=== PATIENT | female | born 1930 ===

== ENCOUNTER 2017-03-18 09:49 | Inpatient (IN) | payer MEDICARE, MEDICAID ==
[2017-03-18 09:49] VITALS: BMI 27.4
[2017-03-18] MEDS ORDERED: Sodium Chloride 0.9% 500 ML IV ONE (10:30)
--- NOTE | 2017-03-18 10:37 | C.PDOC ---
Chief Complaint (Nursing): Medical Clearance Past Medical History Vital Signs: Last Vital Signs Temp 98.6 F 03/18/17 10:06 Pulse 104 H 03/18/17 10:24 Resp 16 03/18/17 10:24 BP 107/65 03/18/17 10:24 Pulse Ox 95 03/18/17 10:24 - Medical History PMH: Alzheimer's Disease, Arthritis, Dementia, Hiatal Hernia, HTN, Hypercholesterolemia, Hypothyroidism, Seizures Denies: Sexually Transmitted Disease Surgical History: Appendectomy, Cholecystectomy Family History: States: Unknown Family Hx - Social History Hx Tobacco Use: No Hx Alcohol Use: No Hx Substance Use: No - Immunization History Hx Tetanus Toxoid Vaccination: No Hx Influenza Vaccination: No Hx Pneumococcal Vaccination: No ED Course And Treatment O2 Sat by Pulse Oximetry: 95 Disposition - Disposition Forms: Amarin (Swedish)
--- NOTE | 2017-03-18 10:37 | C.PDOC ---
History Of Present Illness 87 year old female presents to ED for evaluation of generalized weakness, dizziness, and not feeling well since this morning. Denies headache, nausea, vomiting, change in vision, change in sensation, abdominal pain, chest pain, shortness of breath, cough, or fever. Chief Complaint (Nursing): Medical Clearance History Per: Patient, EMS History/Exam Limitations: no limitations Onset/Duration Of Symptoms: Hrs, Gradual Current Symptoms Are (Timing): Still Present Recent travel outside of the [place]: No Additional History Per: Patient Past Medical History Reviewed: Historical Data, Nursing Documentation, Vital Signs Vital Signs: Last Vital Signs Temp 98.6 F 03/18/17 10:06 Pulse 96 H 03/18/17 16:25 Resp 20 03/18/17 16:25 BP 108/66 03/18/17 16:25 Pulse Ox 94 L 03/18/17 16:25 - Medical History PMH: Alzheimer's Disease, Arthritis, Dementia, Hiatal Hernia, HTN, Hypercholesterolemia, Hypothyroidism, Seizures Denies: Sexually Transmitted Disease Surgical History: Appendectomy, Cholecystectomy Family History: States: Unknown Family Hx - Social History Hx Tobacco Use: No Hx Alcohol Use: No Hx Substance Use: No - Immunization History Hx Tetanus Toxoid Vaccination: No Hx Influenza Vaccination: No Hx Pneumococcal Vaccination: No Review Of Systems Except As Marked, All Systems Reviewed And Found Negative. Constitutional: Positive for: Weakness. Negative for: Fever, Chills Cardiovascular: Negative for: Chest Pain, Palpitations, Edema Respiratory: Negative for: Cough, Shortness of Breath Gastrointestinal: Negative for: Nausea, Vomiting, Abdominal Pain Musculoskeletal: Negative for: Neck Pain, Back Pain Neurological: Positive for: Dizziness. Negative for: Weakness, Numbness, Headache Physical Exam - Physical Exam Appears: Non-toxic, No Acute Distress Skin: Normal Color, Warm, Dry Head: Atraumatic, Normacephalic Eye(s): bilateral: Normal Inspection Oral Mucosa: Moist Neck: Normal ROM, Supple Chest: Symmetrical Cardiovascular: Rhythm Regular, No Murmur Respiratory: Normal Breath Sounds, No Rales, No Rhonchi, No Wheezing Gastrointestinal/Abdominal: Soft, No Tenderness Extremity: Normal ROM, No Pedal Edema, No Deformity Neurological/Psych: Oriented x3, Normal Speech ED Course And Treatment - Laboratory Results Result Diagrams: 03/18/17 10:48 03/18/17 10:48 O2 Sat by Pulse Oximetry: 95 (RA) Pulse Ox Interpretation: Normal - Radiology CXR: Interpreted by Al CXR Interpretation: Yes: No Acute Disease - CT Scan/US Head CT Other Rad Studies (CT/US): Read By Radiologist, Radiology Report Reviewed CT/US Interpretation: PROCEDURE: CT HEAD WITHOUT CONTRAST. HISTORY: dizzy, weak. COMPARISON: None available. TECHNIQUE: Axial computed tomography images were obtained through the head/brain without intravenous contrast. Radiation dose: Total exam DLP = 1055.02 mGy-cm. This CT exam was performed using one or more of the following dose reduction techniques: Automated exposure control, adjustment of the mA and/or kV according to patient size, and/ or use of iterative reconstruction technique. FINDINGS: HEMORRHAGE: No intracranial hemorrhage. BRAIN: No intracranial mass. Surgical clips or coils in right MCA region consistent with prior aneurysm repair. Unchanged from prior. No evidence of acute infarct. Moderate periventricular white matter lucency consistent with chronic microvascular ischemic change. Moderate diffuse age-appropriate cerebral atrophy. VENTRICLES: No hydrocephalus. Mild ex vacuo dilatation of the lateral ventricles. Cavum septum pellucidum, incidentally noted. CALVARIUM: Unremarkable. PARANASAL SINUSES: Chronic ethmoid and sphenoid sinusitis. Possible air-fluid level in right maxillary sinus. Please correlate for any concern regarding acute sinusitis. The right maxillary sinus is only minimally included in this examination. MASTOID AIR CELLS: Unremarkable as visualized. No inflammatory changes. OTHER FINDINGS: None. IMPRESSION: No intracranial mass, hemorrhage or evidence of acute infarct. Age-appropriate involutional changes. 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 Possible air-fluid level in right maxillary sinus. Incompletely evaluated. Rule out acute sinusitis. Chronic ethmoid and sphenoid sinusitis. Progress Note: Blood work, UA, EKG, CXR, Head CT ordered and reviewed. Patient was given IV fluids. On reassessment, patient is resting comfortably, no acute distress. No neurologic deficit. Pt remains alert and oriented x3. Labs significant for elevated BUN /Creat that significantly worse compare with her previous visit. case was d/w who accepted patient for obsrvation. Disposition - Disposition Disposition: HOSPITALIZED Disposition Time: 14:33 Condition: FAIR - Clinical Impression Clinical Impression: Weakness, Acute on chronic renal insufficiency - PA / ASSOCIATE PROFESSOR OF MANAGEMENT / Resident Statement MD/DO has reviewed & agrees with the documentation as recorded. - Scribe Statement The provider has reviewed the documentation as recorded by the Scribe Gonsalo Gross All medical record entries made by the Kiyaibe were at my direction and personally dictated by me. I have reviewed the chart and agree that the record accurately reflects my personal performance of the history, physical exam, medical decision making, and the department course for this patient. I have also personally directed, reviewed, and agree with the discharge instructions and disposition. Decision To Admit - Pt Status Changed To: Hospital Disposition Of: Observation - . Bed Request Type: Regular Admitting Physician: Jennifer Mujica Patient Diagnosis: Weakness, Acute on chronic renal insufficiency
[2017-03-18 11:01] LABS: BASO % 0.7 % (0.0-2.0); EOS # 0.1 K/uL (0.0-0.7); HEMOGLOBIN 12.8 g/dL (11.0-16.0); INR 1.1; LYMPH # 0.8 K/uL (1.0-4.3); LYMPH % 11.2 % (20.0-40.0); MEAN CELL VOLUME 90.4 fL (81.0-99.0); MEAN CORPUSCULAR HEMOGLOBIN 30.5 pg (27.0-31.0); MEAN CORPUSCULAR HGB CONC 33.7 g/dL (33.0-37.0); MEAN PLATELET VOLUME 8.9 fL (7.2-11.7); MONO # 0.7 K/uL (0.0-0.8); MONO % 9.4 % (0.0-10.0); NEUT # 5.5 K/uL (1.8-7.0); NEUT % 76.7 % (50.0-75.0); NRBC % 0.1 % (0.0-2.0); PROTHROMBIN TIME 12.1 SECONDS (9.7-12.2); RBC 4.2 Mil/uL (3.80-5.20); RED CELL DISTRIBUTION WIDTH 13.6 % (11.5-14.5)
[2017-03-18 11:03] LABS: WHITE BLOOD COUNT 7.2 K/uL (4.8-10.8)
[2017-03-18 11:08] LABS: ALB/GLOB RATIO 1.1 (1.0-2.1); ALBUMIN 4.3 g/dL (3.5-5.0); CALCIUM 9.1 mg/dl (8.6-10.4)
[2017-03-18 11:20] LABS: CK-MB 2.47 ng/mL (0.0-3.38); TROPONIN I 0.058 ng/mL (0.00-0.120)
--- NOTE | 2017-03-18 12:11 | CT ---
PROCEDURE: CT HEAD WITHOUT CONTRAST. HISTORY: dizzy, weak COMPARISON: None available. TECHNIQUE: Axial computed tomography images were obtained through the head/brain without intravenous contrast. Radiation dose: Total exam DLP = 1055.02 mGy-cm. This CT exam was performed using one or more of the following dose reduction techniques: Automated exposure control, adjustment of the mA and/or kV according to patient size, and/or use of iterative reconstruction technique. FINDINGS: HEMORRHAGE: No intracranial hemorrhage. BRAIN: No intracranial mass. Surgical clips or coils in right MCA region consistent with prior aneurysm repair. Unchanged from prior. No evidence of acute infarct. Moderate periventricular white matter lucency consistent with chronic microvascular ischemic change. Moderate diffuse age-appropriate cerebral atrophy. VENTRICLES: No hydrocephalus. Mild ex vacuo dilatation of the lateral ventricles. Cavum septum pellucidum, incidentally noted. CALVARIUM: Unremarkable. PARANASAL SINUSES: Chronic ethmoid and sphenoid sinusitis. Possible air-fluid level in right maxillary sinus. Please correlate for any concern regarding acute sinusitis. The right maxillary sinus is only minimally included in this examination. MASTOID AIR CELLS: Unremarkable as visualized. No inflammatory changes. OTHER FINDINGS: None. IMPRESSION: No intracranial mass, hemorrhage or evidence of acute infarct. Age-appropriate involutional changes. 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 Possible air-fluid level in right maxillary sinus. Incompletely evaluated. Rule out acute sinusitis. Chronic ethmoid and sphenoid sinusitis.
--- NOTE | 2017-03-18 13:24 | RAD ---
HISTORY: weak, dizzy COMPARISON: Chest x-ray performed 02/04/16 TECHNIQUE: Chest, one view. FINDINGS: Examination limited by habitus and hypoinflation. LUNGS: Mild pulmonary venous congestion. No focal consolidation. Please note that chest x-ray has limited sensitivity for the detection of pulmonary masses. PLEURA: No significant pleural effusion identified. No definite pneumothorax . CARDIOVASCULAR: Mild cardiomegaly. OSSEOUS STRUCTURES: Osseous demineralization. Degenerative changes. VISUALIZED UPPER ABDOMEN: Elevation of the right hemidiaphragm. OTHER FINDINGS: None. IMPRESSION: Mild pulmonary venous congestion. Mild cardiomegaly.
[2017-03-18 13:33] LABS: URINE AMORPHOUS SEDIMENT RARE /ul (<OCC); URINE BACTERIA RARE (<OCC); URINE BILIRUBIN NEGATIVE (NEGATIVE); URINE BLOOD 2+ (NEGATIVE); URINE CLARITY Clear (Clear); URINE COLOR Yellow (YELLOW); URINE GLUCOSE (UA) NORMAL (Normal); URINE HYALINE CAST 0-2 /lpf (0-2); URINE LEUKOCYTE ESTERASE TRACE Leu/uL (Negative); URINE NITRATE NEGATIVE (NEGATIVE); URINE PROTEIN 2+ mg/dL (NEGATIVE); URINE UROBILINOGEN NORMAL mg/dL (0.2-1.0)
[2017-03-18] MEDS ORDERED: Sodium Chloride 0.9% 1,000 ML IV STA (14:34)
--- NOTE | 2017-03-18 18:29 | CP.PCM.HP ---
History of Present Illness - History of Present Illness History of Present Illness: pt came in to er for weekness confusion hx of alzhiemer and crf Present on Admission - Present on Admission Any Indicators Present on Admission: No Review of Systems - Review of Systems Systems not reviewed;Unavailable: Acuity of Condition - Constitutional Constitutional: Fatigue, Weakness - EENT Eyes: As Per HPI Ears: As Per HPI Nose/Mouth/Throat: As Per HPI - Breasts Breasts: As Per HPI - Cardiovascular Cardiovascular: As Per HPI - Respiratory Respiratory: As Per HPI - Gastrointestinal Gastrointestinal: As Per HPI - Genitourinary Genitourinary: As Per HPI - Reproductive: Female Reproductive:Female: As Per HPI, Post Menopausal - Menstruation Menstruation: Post Menopausal - Musculoskeletal Musculoskeletal: Arthralgias - Integumentary Integumentary: As Per HPI - Neurological Neurological: Confusion - Psychiatric Psychiatric: Anxiety - Endocrine Endocrine: As Per HPI - Hematologic/Lymphatic Hematologic: As Per HPI Past Patient History - Infectious Disease Hx of Infectious Diseases: None - Past Medical History & Family History Past Medical History?: Yes - Past Social History Smoking Status: Never Smoked - CARDIAC Hx Hypercholesterolemia: Yes Hx Hypertension: Yes - PULMONARY Hx Tuberculosis: No - NEUROLOGICAL Hx Alzheimer's Disease: Yes Hx Dementia: Yes Hx Seizures: Yes - ENDOCRINE/METABOLIC Hx Hypothyroidism: Yes - HEMATOLOGICAL/ONCOLOGICAL Hx Cancer: No - MUSCULOSKELETAL/RHEUMATOLOGICAL Hx Arthritis: Yes - GASTROINTESTINAL Other/Comment: hx of twisted intestine - GENITOURINARY/GYNECOLOGICAL Hx Sexually Transmitted Disorders: No - PSYCHIATRIC Hx Substance Use: No - SURGICAL HISTORY Hx Appendectomy: Yes Hx Cholecystectomy: Yes - ANESTHESIA Hx Anesthesia: Yes Hx Anesthesia Reactions: No Meds Allergies/Adverse Reactions: Allergies Allergy/AdvReac Type Severity Reaction Status Date / Time No Known Allergies Allergy Verified 03/18/17 15:09 Physical Exam - Constitutional Appears: Non-toxic - Head Exam Head Exam: ATRAUMATIC - Eye Exam Eye Exam: Normal appearance Pupil Exam: PERRL - ENT Exam ENT Exam: Mucous Membranes Dry - Neck Exam Neck exam: Positive for: Full Rom - Respiratory Exam Respiratory Exam: Decreased Breath Sounds - Cardiovascular Exam Cardiovascular Exam: REGULAR RHYTHM - GI/Abdominal Exam GI & Abdominal Exam: Normal Bowel Sounds - Rectal Exam Rectal Exam: Deferred - Extremities Exam Extremities exam: Positive for: normal inspection - Back Exam Back exam: NORMAL INSPECTION - Neurological Exam Neurological exam: Altered - Psychiatric Exam Psychiatric exam: Agitated - Skin Skin Exam: Normal Color Results - Vital Signs Recent Vital Signs: Last Vital Signs Temp 98.6 F 03/18/17 10:06 Pulse 96 H 03/18/17 16:25 Resp 20 03/18/17 16:25 BP 108/66 03/18/17 16:25 Pulse Ox 95 03/18/17 16:58 - Labs Result Diagrams: 03/18/17 10:48 03/18/17 10:48 Labs: Laboratory Results - last 24 hr 03/18/17 03/18/17 03/18/17 10:01 10:48 10:48 WBC 7.2 D RBC 4.20 Hgb 12.8 Hct 38.0 MCV 90.4 MCH 30.5 MCHC 33.7 RDW 13.6 Plt Count 130 MPV 8.9 Neut % (Auto) 76.7 H Lymph % (Auto) 11.2 L Bacon % (Auto) 9.4 Eos % (Auto) 2.0 Baso % (Auto) 0.7 Neut # 5.5 Lymph # 0.8 L Bacon # 0.7 Eos # 0.1 Baso # 0.0 PT 12.1 INR 1.1 APTT 26 Sodium Potassium Chloride Carbon Dioxide Anion Gap BUN Creatinine Est GFR ( Amer) Est GFR (Non-Af Amer) POC Glucose (mg/dL) 189 H Random Glucose Calcium Total Bilirubin AST ALT Alkaline Phosphatase Total Creatine Kinase CK-MB (Mass) Troponin I Total Protein Albumin Globulin Albumin/Globulin Ratio Urine Color Urine Clarity Urine pH Ur Specific [place] Urine Protein Urine Glucose (UA) Urine Ketones Urine Blood Urine Nitrate Urine Bilirubin Urine Urobilinogen Ur Leukocyte Esterase Urine WBC (Auto) Urine RBC (Auto) Amorphous Sediment Urine Bacteria Hyaline Casts 03/18/17 03/18/17 10:48 13:05 WBC RBC Hgb Hct MCV MCH MCHC RDW Plt Count MPV Neut % (Auto) Lymph % (Auto) [place] % (Auto) Eos % (Auto) Baso % (Auto) Neut # Lymph # Bacon # Eos # Baso # PT INR APTT Sodium 141 Potassium 4.5 Chloride 106 Carbon Dioxide 22 Anion Gap 17 BUN 33 H Creatinine 2.3 H Est GFR ( Amer) 24 Est GFR (Non-Af Amer) 20 POC Glucose (mg/dL) Random Glucose 147 H Calcium 9.1 Total Bilirubin 1.0 AST 38 H ALT 21 Alkaline Phosphatase 57 Total Creatine Kinase 384 H CK-MB (Mass) 2.47 Troponin I 0.0580 Total Protein 8.2 Albumin 4.3 Globulin 3.9 Albumin/Globulin Ratio 1.1 Urine Color Yellow Urine Clarity Clear Urine pH 5.0 Ur Specific [place] 1.012 Urine Protein 2+ H Urine Glucose (UA) Normal Urine Ketones Negative Urine Blood 2+ H Urine Nitrate Negative Urine Bilirubin Negative Urine Urobilinogen Normal Ur Leukocyte Esterase Trace Urine WBC (Auto) 5 Urine RBC (Auto) 1 Amorphous Sediment Rare H Urine Bacteria Rare Hyaline Casts 0-2 Assessment & Plan - Assessment and Plan (Free Text) Assessment: weekness confusion renal failiur dehydration Plan: admit and as per orders - Date & Time Date: 03/18/17 Time: 18:32
[2017-03-18 21:15] VITALS: RESP 20
--- NOTE | 2017-03-19 00:11 | CP.PCM.CON ---
History of Present Illness - History of Present Illness History of Present Illness: Dizziness, and not feeling well since this morning Alzheimer's Disease, Arthritis, Dementia, Hiatal Hernia , HTN, Hypercholesterolemia, Hypothyroidism, Seizures Difficulty walking on the Right foot and Right hip Pain 87 year old female presents to ED for evaluation of generalized weakness , . Denies headache, nausea, vomiting, change in vision, change in sensation, abdominal pain, chest pain, shortness of breath, cough, or fever. Chief Complaint (Nursing): Medical Clearance History Per: Patient, EMS History/Exam Limitations: no limitations Onset/Duration Of Symptoms: Hrs, Gradual Current Symptoms Are (Timing): Still Present Recent travel outside of the [place]: No Additional History Per: Patient Past Medical History Reviewed: Historical Data, Nursing Documentation, Vital Signs Vital Signs: Last Vital Signs Temp 98.6 F 03/18/17 10:06 Pulse 96 H 03/18/17 16:25 Resp 20 03/18/17 16:25 BP 108/66 03/18/17 16:25 Pulse Ox 94 L 03/18/17 16:25 - Medical History PMH: Alzheimer's Disease, Arthritis, Dementia, Hiatal Hernia, HTN, Hypercholesterolemia, Hypothyroidism, Seizures Denies: Sexually Transmitted Disease Surgical History: Appendectomy, Cholecystectomy Family History: States: Unknown Family Hx - Social History Hx Tobacco Use: No Hx Alcohol Use: No Hx Substance Use: No - Immunization History Hx Tetanus Toxoid Vaccination: No Hx Influenza Vaccination: No Hx Pneumococcal Vaccination: No Review Of Systems Except As Marked, All Systems Reviewed And Found Negative. Constitutional: Positive for: Weakness. Negative for: Fever, Chills Cardiovascular: Negative for: Chest Pain, Palpitations, Edema Respiratory: Negative for: Cough, Shortness of Breath Gastrointestinal: Negative for: Nausea, Vomiting, Abdominal Pain Musculoskeletal: Negative for: Neck Pain, Back Pain Neurological: Positive for: Dizziness. Negative for: Weakness, Numbness, Headache Physical Exam Appears: Non-toxic, No Acute Distress Skin: Normal Color, Warm, Dry Head: Atraumatic, Normacephalic Eye(s): bilateral: Normal Inspection Oral Mucosa: Moist Neck: Normal ROM, Supple Chest: Symmetrical Cardiovascular: Rhythm Regular, No Murmur Respiratory: Normal Breath Sounds, No Rales, No Rhonchi, No Wheezing Gastrointestinal/Abdominal: Soft, No Tenderness Extremity: Normal ROM, No Pedal Edema, No Deformity Neurological/Psych: Oriented x3, Normal Speech IMPRESSION of CT Brain: No intracranial mass, hemorrhage or evidence of acute infarct. Age-appropriate involutional changes. 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 Possible air -fluid level in right maxillary sinus. Incompletely evaluated. Rule out acute sinusitis. Chronic ethmoid and sphenoid sinusitis. - Clinical Impression Clinical Impression: Weakness, Acute on chronic renal insufficiency Past Patient History - Infectious Disease Hx of Infectious Diseases: None - Past Medical History & Family History Past Medical History?: Yes - Past Social History Smoking Status: Never Smoked - CARDIAC Hx Hypercholesterolemia: Yes Hx Hypertension: Yes - PULMONARY Hx Tuberculosis: No - NEUROLOGICAL Hx Alzheimer's Disease: Yes Hx Dementia: Yes Hx Seizures: Yes - ENDOCRINE/METABOLIC Hx Hypothyroidism: Yes - HEMATOLOGICAL/ONCOLOGICAL Hx Cancer: No - MUSCULOSKELETAL/RHEUMATOLOGICAL Hx Arthritis: Yes - GASTROINTESTINAL Other/Comment: hx of twisted intestine - GENITOURINARY/GYNECOLOGICAL Hx Sexually Transmitted Disorders: No - PSYCHIATRIC Hx Substance Use: No - SURGICAL HISTORY Hx Appendectomy: Yes Hx Cholecystectomy: Yes - ANESTHESIA Hx Anesthesia: Yes Hx Anesthesia Reactions: No Meds Allergies/Adverse Reactions: Allergies Allergy/AdvReac Type Severity Reaction Status Date / Time No Known Allergies Allergy Verified 03/18/17 15:09 - Medications Medications: Current Medications Alprazolam (Xanax) 0.25 mg PO Q8H PRN PRN Reason: Anxiety Stop: 03/25/17 23:27 Aspirin (Ecotrin) 81 mg PO DAILY [facility] Enoxaparin Sodium (Lovenox) 30 mg SC DAILY [facility] Folic Acid (Folic Acid) 1 mg PO DAILY [facility] Sodium Chloride (Sodium Chloride 0.9%) 1,000 mls @ 100 mls/hr IV .Q10H STA Stop: 03/19/17 00:33 Last Admin: 03/18/17 14:49 Dose: 100 mls/hr Ibuprofen (Motrin Tab) 400 mg PO TIDPC PRN PRN Reason: Pain, moderate (4-7) Levetiracetam (Keppra) 500 mg PO DAILY [facility] Levothyroxine Sodium (Synthroid) 50 mcg PO DAILY@0630 [facility] Pneumococcal Polyvalent Vaccine (Pneumovax 23 Vaccine) 0.5 ml IM .ONCE ONE Stop: 03/19/17 10:01 Rosuvastatin Calcium (Crestor) 10 mg PO HS [facility] Vitamin B Complex/Folic Acid (Berroca) 1 tab PO DAILY [facility] Physical Exam - Neurological Exam Additional comments: Mental status: Patient is lying down in bed, talking and complaining about her knees and her right hip. She is awake alert, demented, disoriented X 3 Memory is impaired for recent events and immediate memory. She might be talking about the old events. Cranial Nerves II to XII: Normal pupils, normal eyes movements, no facial asymmetry. Central tongue, swallowing is intact. Motor: Generalized weakness 4+ to 5-/5 moves both sides equally DTR 0/4 Plantar stimulation is initiating down going toes Sensory: Intact sensation Cerebellar: Unable to assess. Stature and Gait: Needs help due to her right hip pain and both knee pain Results - Vital Signs Recent Vital Signs: Last Vital Signs Temp 98.1 F 03/18/17 23:37 Pulse 67 03/18/17 23:37 Resp 20 03/18/17 23:37 BP 135/71 03/18/17 23:37 Pulse Ox 98 03/18/17 23:37 - Labs Result Diagrams: 03/18/17 10:48 03/18/17 10:48 Labs: Laboratory Results - last 24 hr 03/18/17 03/18/17 03/18/17 10:01 10:48 10:48 WBC 7.2 D RBC 4.20 Hgb 12.8 Hct 38.0 MCV 90.4 MCH 30.5 MCHC 33.7 RDW 13.6 Plt Count 130 MPV 8.9 Neut % (Auto) 76.7 H Lymph % (Auto) 11.2 L [place] % (Auto) 9.4 Eos % (Auto) 2.0 Baso % (Auto) 0.7 Neut # 5.5 Lymph # 0.8 L [place] # 0.7 Eos # 0.1 Baso # 0.0 PT 12.1 INR 1.1 APTT 26 Sodium Potassium Chloride Carbon Dioxide Anion Gap BUN Creatinine Est GFR ( Amer) Est GFR (Non-Af Amer) POC Glucose (mg/dL) 189 H Random Glucose Calcium Total Bilirubin AST ALT Alkaline Phosphatase Total Creatine Kinase CK-MB (Mass) Troponin I Total Protein Albumin Globulin Albumin/Globulin Ratio Urine Color Urine Clarity Urine pH Ur Specific [place] Urine Protein Urine Glucose (UA) Urine Ketones Urine Blood Urine Nitrate Urine Bilirubin Urine Urobilinogen Ur Leukocyte Esterase Urine WBC (Auto) Urine RBC (Auto) Amorphous Sediment Urine Bacteria Hyaline Casts 03/18/17 03/18/17 10:48 13:05 WBC RBC Hgb Hct MCV MCH MCHC RDW Plt Count MPV Neut % (Auto) Lymph % (Auto) [place] % (Auto) Eos % (Auto) Baso % (Auto) Neut # Lymph # [place] # Eos # Baso # PT INR APTT Sodium 141 Potassium 4.5 Chloride 106 Carbon Dioxide 22 Anion Gap 17 BUN 33 H Creatinine 2.3 H Est GFR ( Amer) 24 Est GFR (Non-Af Amer) 20 POC Glucose (mg/dL) Random Glucose 147 H Calcium 9.1 Total Bilirubin 1.0 AST 38 H ALT 21 Alkaline Phosphatase 57 Total Creatine Kinase 384 H CK-MB (Mass) 2.47 Troponin I 0.0580 Total Protein 8.2 Albumin 4.3 Globulin 3.9 Albumin/Globulin Ratio 1.1 Urine Color Yellow Urine Clarity Clear Urine pH 5.0 Ur Specific [place] 1.012 Urine Protein 2+ H Urine Glucose (UA) Normal Urine Ketones Negative Urine Blood 2+ H Urine Nitrate Negative Urine Bilirubin Negative Urine Urobilinogen Normal Ur Leukocyte Esterase Trace Urine WBC (Auto) 5 Urine RBC (Auto) 1 Amorphous Sediment Rare H Urine Bacteria Rare Hyaline Casts 0-2 Assessment & Plan (1) Acute on chronic renal insufficiency Status: Acute (2) Weakness Status: Acute (3) Chest pain Status: Acute (4) Hypothyroid Status: Acute (5) Multiple contusions Assessment and Plan: Seen in the Knee, Foot. Status: Acute (6) CVA (cerebral vascular accident) Assessment and Plan: Studies for CVA. Old Right MCA repaired aneurysm is seen. Status: Acute (7) Seizure Assessment and Plan: Studies for Seizures. Status: Acute
[2017-03-19] MEDS: Levothyroxine 50 MCG TAB PO SCH (05:34)
[2017-03-19] MEDS: Enoxaparin 30 mg Syringe SC SCH (09:46)
[2017-03-19] MEDS ORDERED: Influenza Vaccine 60 mcg/0.5 mL SYR (4YR UP) IM ONE (10:00)
[2017-03-19] MEDS ORDERED: Pneumococcal 23-Valent Vaccine IM ONE (10:00)
--- NOTE | 2017-03-19 11:06 | CP.PCM.PN ---
Subjective - Date & Time of Evaluation Date of Evaluation: 03/19/17 Time of Evaluation: 11:03 - Subjective Subjective: pain r hip dificulty ambulating feels weeke Objective - Vital Signs/Intake and Output Vital Signs (last 24 hours): Temp Pulse Resp BP Pulse Ox 98.3 F 97 H 20 114/79 96 03/19/17 08:00 03/19/17 08:00 03/19/17 08:00 03/19/17 08:00 03/19/17 08:00 Intake and Output: 03/19/17 03/19/17 06:59 18:59 Intake Total 440 Balance 440 - Medications Medications: Current Medications Alprazolam (Xanax) 0.25 mg PO Q8H PRN PRN Reason: Anxiety Stop: 03/25/17 23:27 Aspirin (Ecotrin) 81 mg PO DAILY [facility] Last Admin: 03/19/17 09:47 Dose: 81 mg Enoxaparin Sodium (Lovenox) 30 mg SC DAILY [facility] Last Admin: 03/19/17 09:46 Dose: 30 mg Folic Acid (Folic Acid) 1 mg PO DAILY [facility] Last Admin: 03/19/17 09:47 Dose: 1 mg Ibuprofen (Motrin Tab) 400 mg PO TIDPC PRN PRN Reason: Pain, moderate (4-7) Levetiracetam (Keppra) 500 mg PO DAILY [facility] Last Admin: 03/19/17 09:47 Dose: 500 mg Levothyroxine Sodium (Synthroid) 50 mcg PO DAILY@0630 [facility] Last Admin: 03/19/17 05:34 Dose: 50 mcg Rosuvastatin Calcium (Crestor) 10 mg PO [facility] Vitamin B Complex/Folic Acid (Berroca) 1 tab PO DAILY [facility] Last Admin: 03/19/17 09:47 Dose: 1 tab - Labs Labs: 03/18/17 10:48 03/18/17 10:48 PT 12.1 SECONDS (9.7-12.2) 03/18/17 10:48 INR 1.1 03/18/17 10:48 APTT 26 SECONDS (21-34) 03/18/17 10:48 - Constitutional Appears: Non-toxic - Head Exam Head Exam: NORMAL INSPECTION - Eye Exam Eye Exam: Normal appearance Pupil Exam: NORMAL ACCOMODATION - ENT Exam ENT Exam: Mucous Membranes Moist - Neck Exam Neck Exam: Full ROM - Respiratory Exam Respiratory Exam: Clear to Ausculation Bilateral - Cardiovascular Exam Cardiovascular Exam: REGULAR RHYTHM - GI/Abdominal Exam GI & Abdominal Exam: Normal Bowel Sounds - Rectal Exam Rectal Exam: NORMAL INSPECTION - Exam Exam: NORMAL INSPECTION - Back Exam Back Exam: NORMAL INSPECTION - Psychiatric Exam Psychiatric exam: Normal Affect - Skin Skin Exam: Normal Color Assessment and Plan - Assessment and Plan (Free Text) Assessment: ac pain r hip dificulty ambulation old hx brain anurysm Plan: as per orders
[2017-03-19] MEDS: Sodium Chloride 0.9% 1,000 ML IV SCH ×2 (12:04→21:28)
--- NOTE | 2017-03-19 12:05 | RAD ---
PROCEDURE: HISTORY: pain COMPARISON: 04/19/[address] x-[address] CT abdomen and pelvis 07/18/2012 TECHNIQUE: AP view of the pelvis and applicable frog leg views obtained. FINDINGS: Status post right total hip arthroplasty with acetabular and femoral components anatomically aligned. Acetabular screw more appearing no suspect hardware failure appreciated. No interval fractures. Right trochanteric calcific bursitis center calcific tendinopathy changes -similar The well corticated ossifications projecting lateral to the superior acetabulum are also compatible with right gluteal injection granulomas -CT study noted Background generalized osteopenia, inferior lumbar facet hypertrophic arthrosis of left hip arthrosis noted IMPRESSION: No interval fracture or interval hardware failure
--- NOTE | 2017-03-19 15:38 | US ---
PROCEDURE: Ultrasound of the Kidneys HISTORY: TOVA COMPARISON: None available. TECHNIQUE: Grayscale imaging was performed. FINDINGS: RIGHT KIDNEY: Measures: 9.6 cm. Normal in size, contour with diffuse increased echogenicity. There are small nonobstructing stones and vascular calcifications. No solid mass lesion or hydronephrosis visualized. LEFT KIDNEY: Measures: 10.2 cm. Normal in size, contour with diffuse increased echogenicity. There are small nonobstructing stones and vascular calcifications. No solid mass lesion or hydronephrosis visualized. OTHER FINDINGS: None. IMPRESSION: Chronic renal parenchymal disease. Nonobstructing renal stones. No hydronephrosis.
--- NOTE | 2017-03-19 19:39 | CP.PCM.CON ---
History of Present Illness - History of Present Illness History of Present Illness: Initial Nephrology Consultation (covering for Dr Gurinder Gross): Assessment: Stable possible Acute Kidney Injury (N17.9) likely due to pre-renal state versus progression of underlying CKD Hypertensive Chronic Kidney Disease (I12.9) Chronic Kidney Disease (N18.3) Stage 3 with ? mg proteinuria (R80.9) likely due to HTN Anemia (D64.9), HTN (I12.9), dementia, seizure, hypothyroidism Plan No acute need for renal replacement therapy at this time. Hypertension controlled. Patient not on ACEI/ARB as BP controlled Monitor Input/Output, daily weights and renal function with basic metabolic panel will give IVF as NS. if no improvement in renal function soon then can d/c it. Check urine spot protein/creatinine and albumin/creatinine ratio, renal sonogram. Check for 25-OH vitamin D, iPTH, phosphorus level Dose meds/antibiotics for reduced GFR. Avoid fleets enema/magnesium based laxatives. Avoid nephrotoxins/NSAIDs/ iodinated contrast (unless needed emergently) Glycemic control Further work up/management as per primary team Thanks for allowing me to participate in care of your patient. Will follow patient with you. Please call if any Qs. d/w son and team Dr Anival Jesus Office: [phone] Chief Complaint; hip pain reason for consult: TOVA HPI: Pt is a 87 F with hx of Alzheimer's Dementia, Arthritis, HTN, Hypercholesterolemia, Hypothyroidism, Seizures and CKD stage 3 with baseline cr1.3-1.7 in 2016 came with c/o feneralised fatigue and weakness and hip pain. renal consult for TOVA/CKD management Denies OTC/herbal meds or NSAIDs No recent iodinated contrast exposure. No obvious episodes of low BP. son bedside states, she has good appetite with food intake but not much of fluid intake though ROS: Cardiovascular: No chest pain. Pulmonary: No shortness of breath Gastrointestinal: denies abdominal pain No nausea. No vomiting. Genitourinary: No pain while urinating. Denies blood in urine. All other negative except as in HPI. overall very limited due to her dementia. son bedside Physical Examination: General Appearance: Comfortable, in no acute respiratory distress, co-operative . Vitals reviewed and noted as below Head; Atraumatic, normocephalic ENT: no ulcers no thrush. Tongue is midline. Oropharynx: no rash or ulcers. EYES: Pupils are equal, round and reactive to light accommodation. Eye muscles and extraocular movement intact. Sclera is anicteric. Neck; supple no lymphadenopathy, no thyromegaly or bruit Lungs: Normal respiratory rate/effort. Breath sounds bilateral equal and clear Heart: Normal rate. s1s2 normal. No rub or gallop. Extremities: no edema. No varicose veins Neurological: Patient is alert, awake and demented. No focal deficit. Strength bilateral appropriate and equal Skin: Warm and dry. Normal turgor. No rash. Palpitation: Normal elasticity for age Abdomen: Abdomen is soft. Bowel sounds +. There is no abdominal tenderness, no guarding/rigidity no organomegaly Psych: normal insight and normal affect/mood MSK: no joint tenderness or swelling. Digits and nails normal, no deformity : kidney or bladder not palpable Labs/imaging reviewed. Past medical history, past surgical history, family history, social history, allergy reviewed and noted as below Family hx: no hx of CKD. Rest non-contributory UA 2+ protein small blood. echo 2016: normal LVEF Past Patient History - Infectious Disease Hx of Infectious Diseases: None - Past Medical History & Family History Past Medical History?: Yes - Past Social History Smoking Status: Never Smoked - CARDIAC Hx Hypercholesterolemia: Yes Hx Hypertension: Yes - PULMONARY Hx Tuberculosis: No - NEUROLOGICAL Hx Alzheimer's Disease: Yes Hx Dementia: Yes Hx Seizures: Yes - ENDOCRINE/METABOLIC Hx Hypothyroidism: Yes - HEMATOLOGICAL/ONCOLOGICAL Hx Cancer: No - MUSCULOSKELETAL/RHEUMATOLOGICAL Hx Arthritis: Yes - GASTROINTESTINAL Other/Comment: hx of twisted intestine - GENITOURINARY/GYNECOLOGICAL Hx Sexually Transmitted Disorders: No - PSYCHIATRIC Hx Substance Use: No - SURGICAL HISTORY Hx Appendectomy: Yes Hx Cholecystectomy: Yes - ANESTHESIA Hx Anesthesia: Yes Hx Anesthesia Reactions: No Meds Allergies/Adverse Reactions: Allergies Allergy/AdvReac Type Severity Reaction Status Date / Time No Known Allergies Allergy Verified 03/18/17 15:09 - Medications Medications: Current Medications Alprazolam (Xanax) 0.25 mg PO Q8H PRN PRN Reason: Anxiety Stop: 03/25/17 23:27 Aspirin (Ecotrin) 81 mg PO DAILY [facility] Last Admin: 03/19/17 09:47 Dose: 81 mg Enoxaparin Sodium (Lovenox) 30 mg SC DAILY [facility] Last Admin: 03/19/17 09:46 Dose: 30 mg Folic Acid (Folic Acid) 1 mg PO DAILY [facility] Last Admin: 03/19/17 09:47 Dose: 1 mg Sodium Chloride (Sodium Chloride 0.9%) 1,000 mls @ 100 mls/hr IV .Q10H [facility] Last Admin: 03/19/17 12:04 Dose: 100 mls/hr Levetiracetam (Keppra) 500 mg PO DAILY [facility] Last Admin: 03/19/17 09:47 Dose: 500 mg Levothyroxine Sodium (Synthroid) 50 mcg PO DAILY@0630 [facility] Last Admin: 03/19/17 05:34 Dose: 50 mcg Rosuvastatin Calcium (Crestor) 10 mg PO [facility] Vitamin B Complex/Folic Acid (Berroca) 1 tab PO DAILY [facility] Last Admin: 03/19/17 09:47 Dose: 1 tab Results - Vital Signs Recent Vital Signs: Last Vital Signs Temp 98.4 F 03/19/17 15:50 Pulse 106 H 03/19/17 15:50 Resp 20 03/19/17 15:50 BP 130/85 03/19/17 15:50 Pulse Ox 98 03/19/17 15:50 - Labs Result Diagrams: 03/18/17 10:48 03/18/17 10:48
--- NOTE | 2017-03-20 00:09 | CARD ---
APPROVED REPORT EKG Measurement Heart [id number] <Conclusion> Sinus tachycardia Marked ST abnormality, possible lateral subendocardial injury Abnormal ECG
--- NOTE | 2017-03-20 00:34 | CP.PCM.PN ---
Subjective - Date & Time of Evaluation Date of Evaluation: 03/20/17 Time of Evaluation: 00:29 - Subjective Subjective: Patient is confused, having right LE pain and tenderness of the right hip and both knees. She has difficulty walking due to her right hip pain and her bilateral knee pain. She is disoriented X 3 and her speech is empty of content.She feels Abdominal tenderness on palpation and tenderness on bending her knees or flexing her right hip. VS are normal. She was seen by nephrology who is recommending to continue the current treatment. Objective - Vital Signs/Intake and Output Vital Signs (last 24 hours): Temp Pulse Resp BP Pulse Ox 98.1 F 92 H 20 128/84 98 03/19/17 23:43 03/19/17 23:43 03/19/17 23:43 03/19/17 23:43 03/19/17 23:43 Intake and Output: 03/19/17 03/20/17 18:59 06:59 Intake Total 700 1050 Balance 700 1050 - Medications Medications: Current Medications Alprazolam (Xanax) 0.25 mg PO Q8H PRN PRN Reason: Anxiety Stop: 03/25/17 23:27 Aspirin (Ecotrin) 81 mg PO DAILY [facility] Last Admin: 03/19/17 09:47 Dose: 81 mg Enoxaparin Sodium (Lovenox) 30 mg SC DAILY [facility] Last Admin: 03/19/17 09:46 Dose: 30 mg Folic Acid (Folic Acid) 1 mg PO DAILY [facility] Last Admin: 03/19/17 09:47 Dose: 1 mg Sodium Chloride (Sodium Chloride 0.9%) 1,000 mls @ 100 mls/hr IV .Q10H [facility] Last Admin: 03/19/17 21:28 Dose: Not Given Levetiracetam (Keppra) 500 mg PO DAILY [facility] Last Admin: 03/19/17 09:47 Dose: 500 mg Levothyroxine Sodium (Synthroid) 50 mcg PO DAILY@0630 [facility] Last Admin: 03/19/17 05:34 Dose: 50 mcg Rosuvastatin Calcium (Crestor) 10 mg PO HS [facility] Last Admin: 03/19/17 21:28 Dose: 10 mg Vitamin B Complex/Folic Acid (Berroca) 1 tab PO DAILY [facility] Last Admin: 03/19/17 09:47 Dose: 1 tab - Labs Labs: 03/18/17 10:48 03/18/17 10:48 PT 12.1 SECONDS (9.7-12.2) 03/18/17 10:48 INR 1.1 03/18/17 10:48 APTT 26 SECONDS (21-34) 03/18/17 10:48 Assessment and Plan (1) Acute on chronic renal insufficiency Status: Acute (2) Weakness Status: Acute (3) Chest pain Status: Acute (4) Hypothyroid Status: Acute (5) Multiple contusions Status: Acute (6) CVA (cerebral vascular accident) Assessment & Plan: 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 Status: Acute (7) Seizure Status: Acute
[2017-03-20] MEDS: Levothyroxine 50 MCG TAB PO SCH (07:00)
[2017-03-20 08:12] LABS: ALBUMIN 3.7 g/dL (3.5-5.0); CALCIUM 8.3 mg/dl (8.6-10.4)
[2017-03-20 08:18] LABS: FREE T4 1.01 ng/dL (0.78-2.19)
[2017-03-20] MEDS: Sodium Chloride 0.9% 1,000 ML IV SCH ×2 (08:45)
[2017-03-20 10:26] LABS: SQUAMOUS EPITHIAL < 1 /hpf (0-5); URINE BACTERIA RARE (<OCC); URINE BILIRUBIN NEGATIVE (NEGATIVE); URINE BLOOD 1+ (NEGATIVE); URINE CLARITY Hazy (Clear); URINE COLOR Yellow (YELLOW); URINE GLUCOSE (UA) NORMAL (Normal); URINE LEUKOCYTE ESTERASE 1+ Leu/uL (Negative); URINE NITRATE NEGATIVE (NEGATIVE); URINE PROTEIN 1+ mg/dL (NEGATIVE); URINE UROBILINOGEN NORMAL mg/dL (0.2-1.0)
[2017-03-20] MEDS: Enoxaparin 30 mg Syringe SC SCH (10:44)
[2017-03-20 11:07] LABS: CREATININE, RANDOM URINE 34.2 mg/dL
--- NOTE | 2017-03-20 11:38 | VASCLAB ---
PROCEDURE: HISTORY: AMS, Dementia, Previous CVA COMPARISON: Previous exam 02/23/2013, normal. TECHNIQUE: Grayscale and duplex Doppler evaluation of the cervical carotid and vertebral arteries were performed. The common carotid, carotid bifurcations and cervical Internal Carotid Artery (ICA) and proximal External Carotid Artery (ECA) were evaluated. The vertebral arteries were evaluated for gross patency and flow direction. Report prepared by Vahe Thompson, BS, RVT FINDINGS: RIGHT CAROTID ARTERIES: 1. Common Carotid Artery: No significant focal plaque formation of the right common carotid artery. Maximum Peak Systolic velocity: 93 cm/sec: End-diastolic velocity 20 cm/sec. 2. Carotid Bifurcation: Calcific plaque formation. Maximum Peak Systolic velocity: 54 cm/sec: End-diastolic velocity 9 cm/sec. 3. Internal Carotid Artery: Plaque description: Calcific 3.1. Proximal Segment: Peak systolic velocity 51 cm/sec: End-diastolic velocity 14 cm/sec - % stenosis 0-15% 3.2. Middle Segment: Peak systolic velocity 66 cm/sec: End-diastolic velocity 21 cm/sec - % stenosis 0-15% 3.3. Distal Segment: Peak systolic velocity 84 cm/sec: End-diastolic velocity 32 cm/sec - % stenosis 0-15% 4. External Carotid Artery: No significant focal plaque formation. Peak systolic velocity 55 cm/sec 5. ICA/CCA Ratio: 1.4 LEFT CAROTID ARTERIES: 1. Common Carotid Artery: No significant focal plaque formation of the left common carotid artery. Maximum Peak Systolic velocity: 63 cm/sec: End-diastolic velocity 19 cm/sec. 2. Carotid Bifurcation: Calcific plaque formation. Maximum Peak Systolic velocity: 56 cm/sec: End-diastolic velocity 19 cm/sec. 3. Internal Carotid Artery: Plaque description: Calcific 3.1. Proximal Segment: Peak systolic velocity 85 cm/sec: End-diastolic velocity 29 cm/sec - % stenosis 0-15% 3.2. Middle Segment: Peak systolic velocity 88 cm/sec: End-diastolic velocity 25 cm/sec - % stenosis 0-15% 3.3. Distal Segment: Peak systolic velocity 66 cm/sec: End-diastolic velocity 20 cm/sec - % stenosis 0-15% 4. External Carotid Artery: No significant focal plaque formation. Peak systolic velocity 59 cm/sec 5. ICA/CCA Ratio: 1.6 VERTEBRAL ARTERIES: 1. Right Vertebral Artery: The right vertebral artery flow direction is antegrade. 2. Left Vertebral Artery: The left vertebral artery flow direction is antegrade. OTHER FINDINGS: 1. Right Brachial Blood pressure: 134 mmHg. 2. Left Brachial Blood pressure: 130 mmHg. IMPRESSION: RIGHT: Duplex scan does not suggest hemodynamically significant stenosis of the right extracranial carotid arteries. LEFT: Duplex scan does not suggest hemodynamically significant stenosis of the left extracranial carotid arteries.
[2017-03-20] MEDS ORDERED: Ciprofloxacin 200mg/100ml D5W 100 ML IVPB STA (11:41)
--- NOTE | 2017-03-20 11:45 | CP.PCM.PN ---
Subjective - Date & Time of Evaluation Date of Evaluation: 03/20/17 Time of Evaluation: 11:41 - Subjective Subjective: weeke sleepy as per pt could not walk need rehab has uti as per u/a Objective - Vital Signs/Intake and Output Vital Signs (last 24 hours): Temp Pulse Resp BP Pulse Ox 97.2 F L 98 H 20 156/95 H 97 03/20/17 08:07 03/20/17 08:07 03/20/17 08:07 03/20/17 08:07 03/20/17 08:07 Intake and Output: 03/20/17 03/20/17 06:59 18:59 Intake Total 1950 Output Total 4 Balance 1950 -4 - Medications Medications: Current Medications Alprazolam (Xanax) 0.25 mg PO Q8H PRN PRN Reason: Anxiety Stop: 03/25/17 23:27 Aspirin (Ecotrin) 81 mg PO DAILY [facility] Last Admin: 03/20/17 10:44 Dose: 81 mg Carvedilol (Coreg) 3.125 mg PO BID [facility] Enoxaparin Sodium (Lovenox) 30 mg SC DAILY [facility] Last Admin: 03/20/17 10:44 Dose: 30 mg Folic Acid (Folic Acid) 1 mg PO DAILY [facility] Last Admin: 03/20/17 10:44 Dose: 1 mg Levetiracetam (Keppra) 500 mg PO DAILY [facility] Last Admin: 03/20/17 10:44 Dose: 500 mg Levothyroxine Sodium (Synthroid) 50 mcg PO DAILY@0630 [facility] Last Admin: 03/20/17 07:00 Dose: 50 mcg Rosuvastatin Calcium (Crestor) 10 mg PO HS [facility] Last Admin: 03/19/17 21:28 Dose: 10 mg Vitamin B Complex/Folic Acid (Berroca) 1 tab PO DAILY [facility] Last Admin: 03/20/17 10:44 Dose: 1 tab - Labs Labs: 03/18/17 10:48 03/20/17 07:12 PT 12.1 SECONDS (9.7-12.2) 03/18/17 10:48 INR 1.1 03/18/17 10:48 APTT 26 SECONDS (21-34) 03/18/17 10:48 - Constitutional Appears: Non-toxic - Head Exam Head Exam: ATRAUMATIC - Eye Exam Eye Exam: Normal appearance - ENT Exam ENT Exam: Mucous Membranes Moist - Neck Exam Neck Exam: Normal Inspection - Respiratory Exam Respiratory Exam: NORMAL BREATHING PATTERN - Cardiovascular Exam Cardiovascular Exam: REGULAR RHYTHM - GI/Abdominal Exam GI & Abdominal Exam: Normal Bowel Sounds - Rectal Exam Rectal Exam: NORMAL INSPECTION - Extremities Exam Additional comments: l hip pain r knee pain - Neurological Exam Neurological Exam: Alert - Psychiatric Exam Psychiatric exam: Normal Affect - Skin Skin Exam: Normal Color Assessment and Plan - Assessment and Plan (Free Text) Assessment: arthritiship knee dificulty ambulating week ac urt infection will start antibiotics pt then arrange for geetha Plan: as per orders
--- NOTE | 2017-03-20 16:45 | CP.PCM.PN ---
Subjective - Date & Time of Evaluation Date of Evaluation: 03/20/17 Time of Evaluation: 16:43 - Subjective Subjective: Follow up Nephrology Consultation (covering for Dr Gurinder Gross): Assessment: Stable possible Acute Kidney Injury (N17.9) likely due to pre-renal state imrpoved with IVF Hypertensive Chronic Kidney Disease (I12.9) Chronic Kidney Disease (N18.3) Stage 3 with 1500 mg proteinuria (R80.9) likely due to HTN Anemia (D64.9), HTN (I12.9), dementia, seizure, hypothyroidism Plan No acute need for renal replacement therapy at this time. Hypertension controlled. Patient not on ACEI/ARB as BP controlled Monitor Input/Output, daily weights and renal function with basic metabolic panel d/c IVF as renal function now at baseline pending iPTH pt encouarged for oral fluid intake Dose meds/antibiotics for improved GFR. Avoid fleets enema/magnesium based laxatives. Avoid nephrotoxins/NSAIDs/ iodinated contrast (unless needed emergently) Glycemic control Further work up/management as per primary team pt stable for d/c from renal perspective when planned by team Thanks for allowing me to participate in care of your patient. Will follow patient with you. Please call if any Qs. d/w son and team Dr Anival Jesus Office: [phone] reason for consult: TOVA HPI: Pt is a 87 F with hx of Alzheimer's Dementia, Arthritis, HTN, Hypercholesterolemia, Hypothyroidism, Seizures and CKD stage 3 with baseline cr1.3-1.7 in 2016 came with c/o feneralised fatigue and weakness and hip pain. renal consult for TOVA/CKD management Denies OTC/herbal meds or NSAIDs No recent iodinated contrast exposure. No obvious episodes of low BP. son bedside states, she has good appetite with food intake but not much of fluid intake though ROS: Cardiovascular: No chest pain. Pulmonary: No shortness of breath Gastrointestinal: denies abdominal pain No nausea. No vomiting. Genitourinary: No pain while urinating. Denies blood in urine. All other negative except as in HPI. overall very limited due to her dementia. son bedside Physical Examination: General Appearance: Comfortable, in no acute respiratory distress, co-operative . Vitals reviewed and noted as below Head; Atraumatic, normocephalic ENT: no ulcers no thrush. Tongue is midline. Oropharynx: no rash or ulcers. EYES: Pupils are equal, round and reactive to light accommodation. Eye muscles and extraocular movement intact. Sclera is anicteric. Neck; supple no lymphadenopathy, no thyromegaly or bruit Lungs: Normal respiratory rate/effort. Breath sounds bilateral equal and clear Heart: Normal rate. s1s2 normal. No rub or gallop. Extremities: no edema. No varicose veins Neurological: Patient is alert, awake and demented. No focal deficit. Strength bilateral appropriate and equal Skin: Warm and dry. Normal turgor. No rash. Palpitation: Normal elasticity for age Abdomen: Abdomen is soft. Bowel sounds +. There is no abdominal tenderness, no guarding/rigidity no organomegaly Psych: normal insight and normal affect/mood MSK: no joint tenderness or swelling. Digits and nails normal, no deformity : kidney or bladder not palpable Labs/imaging reviewed. Past medical history, past surgical history, family history, social history, allergy reviewed and noted as below Family hx: no hx of CKD. Rest non-contributory UA 2+ protein small blood. echo 2016: normal LVEF renal sono: echogenic kidneys Objective - Vital Signs/Intake and Output Vital Signs (last 24 hours): Temp Pulse Resp BP Pulse Ox 97.8 F 90 20 99/66 L 94 L 03/20/17 15:00 03/20/17 15:00 03/20/17 15:00 03/20/17 15:00 03/20/17 15:00 Intake and Output: 03/20/17 03/20/17 06:59 18:59 Intake Total 1950 660 Output Total 4 Balance 1950 656 - Medications Medications: Current Medications Alprazolam (Xanax) 0.25 mg PO Q8H PRN PRN Reason: Anxiety Stop: 03/25/17 23:27 Aspirin (Ecotrin) 81 mg PO DAILY [facility] Last Admin: 03/20/17 10:44 Dose: 81 mg Carvedilol (Coreg) 3.125 mg PO BID [facility] Last Admin: 03/20/17 12:28 Dose: 3.125 mg Enoxaparin Sodium (Lovenox) 30 mg SC DAILY [facility] Last Admin: 03/20/17 10:44 Dose: 30 mg Folic Acid (Folic Acid) 1 mg PO DAILY [facility] Last Admin: 03/20/17 10:44 Dose: 1 mg Ceftriaxone Sodium 1 gm/ (Sodium Chloride) 100 mls @ 100 mls/hr IVPB Q24H [facility] Levetiracetam (Keppra) 500 mg PO DAILY [facility] Last Admin: 03/20/17 10:44 Dose: 500 mg Levothyroxine Sodium (Synthroid) 50 mcg PO DAILY@0630 [facility] Last Admin: 03/20/17 07:00 Dose: 50 mcg Rosuvastatin Calcium (Crestor) 10 mg PO HS [facility] Last Admin: 03/19/17 21:28 Dose: 10 mg Vitamin B Complex/Folic Acid (Berroca) 1 tab PO DAILY [facility] Last Admin: 03/20/17 10:44 Dose: 1 tab - Labs Labs: 03/18/17 10:48 03/20/17 07:12 PT 12.1 SECONDS (9.7-12.2) 03/18/17 10:48 INR 1.1 03/18/17 10:48 APTT 26 SECONDS (21-34) 03/18/17 10:48
--- NOTE | 2017-03-21 00:12 | CP.PCM.PN ---
Subjective - Date & Time of Evaluation Date of Evaluation: 03/21/17 Time of Evaluation: 00:09 - Subjective Subjective: She is improving slowly. Negative carotid Doppler bilaterally. No change in her mental status. Improvement of BUN down to normal value is 17, slightly high Creatinine 1.5 Apparently She was dehydrated and is well hydrated. Normal Vitamin D level. High ESR at 59 and CRP more than 16 Objective - Vital Signs/Intake and Output Vital Signs (last 24 hours): Temp Pulse Resp BP Pulse Ox 99 F 93 H 20 110/68 94 L 03/20/17 23:10 03/20/17 23:10 03/20/17 23:10 03/20/17 23:10 03/20/17 23:10 Intake and Output: 03/20/17 03/21/17 18:59 06:59 Intake Total 660 Output Total 4 Balance 656 - Medications Medications: Current Medications Alprazolam (Xanax) 0.25 mg PO Q8H PRN PRN Reason: Anxiety Stop: 03/25/17 23:27 Aspirin (Ecotrin) 81 mg PO DAILY [facility] Last Admin: 03/20/17 10:44 Dose: 81 mg Carvedilol (Coreg) 3.125 mg PO BID [facility] Last Admin: 03/20/17 17:22 Dose: 3.125 mg Enoxaparin Sodium (Lovenox) 30 mg SC DAILY [facility] Last Admin: 03/20/17 10:44 Dose: 30 mg Folic Acid (Folic Acid) 1 mg PO DAILY [facility] Last Admin: 03/20/17 10:44 Dose: 1 mg Ceftriaxone Sodium 1 gm/ (Sodium Chloride) 100 mls @ 100 mls/hr IVPB Q24H [facility] Last Admin: 03/20/17 16:05 Dose: 100 mls/hr Levetiracetam (Keppra) 500 mg PO DAILY [facility] Last Admin: 03/20/17 10:44 Dose: 500 mg Levothyroxine Sodium (Synthroid) 50 mcg PO DAILY@0630 [facility] Last Admin: 03/20/17 07:00 Dose: 50 mcg Rosuvastatin Calcium (Crestor) 10 mg PO HS [facility] Last Admin: 03/20/17 22:00 Dose: 10 mg Vitamin B Complex/Folic Acid (Berroca) 1 tab PO DAILY [facility] Last Admin: 03/20/17 10:44 Dose: 1 tab - Labs Labs: 03/18/17 10:48 03/20/17 07:12 PT 12.1 SECONDS (9.7-12.2) 03/18/17 10:48 INR 1.1 03/18/17 10:48 APTT 26 SECONDS (21-34) 03/18/17 10:48 Assessment and Plan (1) Acute on chronic renal insufficiency Status: Acute (2) Weakness Status: Acute (3) Chest pain Status: Acute (4) Hypothyroid Status: Acute (5) Multiple contusions Status: Acute (6) CVA (cerebral vascular accident) Status: Acute (7) Seizure Status: Acute
[2017-03-21] MEDS: Levothyroxine 50 MCG TAB PO SCH (05:57)
[2017-03-21 07:04] LABS: CALCIUM 8.3 mg/dl (8.6-10.4)
[2017-03-21] MEDS: Enoxaparin 30 mg Syringe SC SCH (10:21)
--- NOTE | 2017-03-21 15:42 | CP.PCM.PN ---
Subjective - Date & Time of Evaluation Date of Evaluation: 03/21/17 Time of Evaluation: 15:41 - Subjective Subjective: Follow up Nephrology Consultation (covering for Dr Gurinder Gross): Assessment: Stable Acute Kidney Injury (N17.9) likely due to pre-renal state improved with IVF Hypertensive Chronic Kidney Disease (I12.9) Chronic Kidney Disease (N18.3) Stage 3 with 1500 mg proteinuria (R80.9) likely due to HTN Anemia (D64.9), HTN (I12.9), dementia, seizure, hypothyroidism Plan No acute need for renal replacement therapy at this time. Hypertension controlled. Patient not on ACEI/ARB as BP controlled. will consider if BP higher Monitor Input/Output, daily weights and renal function with basic metabolic panel pt encouarged for oral fluid intake Dose meds/antibiotics for improved GFR. Avoid fleets enema/magnesium based laxatives. Avoid nephrotoxins/NSAIDs/ iodinated contrast (unless needed emergently) Glycemic control Further work up/management as per primary team pt stable for d/c from renal perspective when planned by team Thanks for allowing me to participate in care of your patient. Will follow patient with you. Please call if any Qs. d/w son and team Dr Anival Jesus Office: [phone] reason for consult: TOVA HPI: Pt is a 87 F with hx of Alzheimer's Dementia, Arthritis, HTN, Hypercholesterolemia, Hypothyroidism, Seizures and CKD stage 3 with baseline cr1.3-1.7 in 2016 came with c/o feneralised fatigue and weakness and hip pain. renal consult for TOVA/CKD management Denies OTC/herbal meds or NSAIDs No recent iodinated contrast exposure. No obvious episodes of low BP. son bedside states, she has good appetite with food intake but not much of fluid intake though ROS: Cardiovascular: No chest pain. Pulmonary: No shortness of breath Gastrointestinal: denies abdominal pain No nausea. No vomiting. Genitourinary: No pain while urinating. Denies blood in urine. All other negative except as in HPI. overall very limited due to her dementia. Physical Examination: General Appearance: Comfortable, in no acute respiratory distress, co-operative . Vitals reviewed and noted as below Head; Atraumatic, normocephalic ENT: no ulcers no thrush. Tongue is midline. Oropharynx: no rash or ulcers. EYES: Pupils are equal, round and reactive to light accommodation. Eye muscles and extraocular movement intact. Sclera is anicteric. Neck; supple no lymphadenopathy, no thyromegaly or bruit Lungs: Normal respiratory rate/effort. Breath sounds bilateral equal and clear Heart: Normal rate. s1s2 normal. No rub or gallop. Extremities: no edema. No varicose veins Neurological: Patient is alert, awake and demented. No focal deficit. Strength bilateral appropriate and equal Skin: Warm and dry. Normal turgor. No rash. Palpitation: Normal elasticity for age Abdomen: Abdomen is soft. Bowel sounds +. There is no abdominal tenderness, no guarding/rigidity no organomegaly Psych: normal insight and normal affect/mood MSK: no joint tenderness or swelling. Digits and nails normal, no deformity : kidney or bladder not palpable Labs/imaging reviewed. Past medical history, past surgical history, family history, social history, allergy reviewed and noted as below Family hx: no hx of CKD. Rest non-contributory UA 2+ protein small blood. echo 2016: normal LVEF renal sono: echogenic kidneys Objective - Vital Signs/Intake and Output Vital Signs (last 24 hours): Temp Pulse Resp BP Pulse Ox 99.6 F 97 H 20 115/69 99 03/21/17 08:52 03/21/17 08:52 03/21/17 08:52 03/21/17 08:52 03/21/17 08:52 Intake and Output: 03/21/17 03/21/17 06:59 18:59 Intake Total 200 Balance 200 - Medications Medications: Current Medications Alprazolam (Xanax) 0.25 mg PO Q8H PRN PRN Reason: Anxiety Stop: 03/25/17 23:27 Aspirin (Ecotrin) 81 mg PO DAILY [facility] Last Admin: 03/21/17 10:22 Dose: 81 mg Carvedilol (Coreg) 3.125 mg PO BID [facility] Last Admin: 03/21/17 10:22 Dose: 3.125 mg Enoxaparin Sodium (Lovenox) 30 mg SC DAILY [facility] Last Admin: 03/21/17 10:21 Dose: 30 mg Folic Acid (Folic Acid) 1 mg PO DAILY [facility] Last Admin: 03/21/17 10:22 Dose: 1 mg Ceftriaxone Sodium 1 gm/ (Sodium Chloride) 100 mls @ 100 mls/hr IVPB Q24H [facility] Last Admin: 03/20/17 16:05 Dose: 100 mls/hr Levetiracetam (Keppra) 500 mg PO DAILY [facility] Last Admin: 03/21/17 10:22 Dose: 500 mg Levothyroxine Sodium (Synthroid) 50 mcg PO DAILY@0630 [facility] Last Admin: 03/21/17 05:57 Dose: 50 mcg Rosuvastatin Calcium (Crestor) 10 mg PO HS [facility] Last Admin: 03/20/17 22:00 Dose: 10 mg Vitamin B Complex/Folic Acid (Berroca) 1 tab PO DAILY [facility] Last Admin: 03/21/17 10:22 Dose: 1 tab - Labs Labs: 03/18/17 10:48 03/21/17 06:39 PT 12.1 SECONDS (9.7-12.2) 03/18/17 10:48 INR 1.1 03/18/17 10:48 APTT 26 SECONDS (21-34) 03/18/17 10:48
--- NOTE | 2017-03-21 19:12 | CP.PCM.PN ---
Subjective - Date & Time of Evaluation Date of Evaluation: 03/21/17 Time of Evaluation: 19:10 - Subjective Subjective: pain r hip and knees dificulty ambulating Objective - Vital Signs/Intake and Output Vital Signs (last 24 hours): Temp Pulse Resp BP Pulse Ox 98.5 F 98 H 20 112/73 98 03/21/17 16:56 03/21/17 17:48 03/21/17 16:56 03/21/17 17:48 03/21/17 16:56 Intake and Output: 03/21/17 03/22/17 18:59 06:59 Intake Total 400 Balance 400 - Medications Medications: Current Medications Alprazolam (Xanax) 0.25 mg PO Q8H PRN PRN Reason: Anxiety Stop: 03/25/17 23:27 Aspirin (Ecotrin) 81 mg PO DAILY [facility] Last Admin: 03/21/17 10:22 Dose: 81 mg Calcium/Vitamin D (Oscal-D 250 Mg-125 Units Tab) 1 tab PO DAILY [facility] Carvedilol (Coreg) 3.125 mg PO BID [facility] Last Admin: 03/21/17 17:49 Dose: 3.125 mg Enoxaparin Sodium (Lovenox) 30 mg SC DAILY [facility] Last Admin: 03/21/17 10:21 Dose: 30 mg Folic Acid (Folic Acid) 1 mg PO DAILY [facility] Last Admin: 03/21/17 10:22 Dose: 1 mg Ceftriaxone Sodium 1 gm/ (Sodium Chloride) 100 mls @ 100 mls/hr IVPB Q24H [facility] Last Admin: 03/21/17 16:39 Dose: 100 mls/hr Levetiracetam (Keppra) 500 mg PO DAILY [facility] Last Admin: 03/21/17 10:22 Dose: 500 mg Levothyroxine Sodium (Synthroid) 50 mcg PO DAILY@0630 [facility] Last Admin: 03/21/17 05:57 Dose: 50 mcg Rosuvastatin Calcium (Crestor) 10 mg PO HS [facility] Last Admin: 03/20/17 22:00 Dose: 10 mg Vitamin B Complex/Folic Acid (Berroca) 1 tab PO DAILY [facility] Last Admin: 03/21/17 10:22 Dose: 1 tab - Labs Labs: 03/18/17 10:48 03/21/17 06:39 PT 12.1 SECONDS (9.7-12.2) 03/18/17 10:48 INR 1.1 03/18/17 10:48 APTT 26 SECONDS (21-34) 03/18/17 10:48 - Constitutional Appears: Non-toxic - Head Exam Head Exam: NORMAL INSPECTION - Eye Exam Eye Exam: Normal appearance Pupil Exam: NORMAL ACCOMODATION - ENT Exam ENT Exam: Normal Exam - Neck Exam Neck Exam: Full ROM - Respiratory Exam Respiratory Exam: Clear to Ausculation Bilateral - Cardiovascular Exam Cardiovascular Exam: REGULAR RHYTHM - GI/Abdominal Exam GI & Abdominal Exam: Normal Bowel Sounds - Rectal Exam Rectal Exam: NORMAL INSPECTION - Exam Exam: NORMAL INSPECTION - Back Exam Back Exam: NORMAL INSPECTION - Neurological Exam Neurological Exam: Awake - Psychiatric Exam Psychiatric exam: Normal Affect - Skin Skin Exam: Normal Color Assessment and Plan - Assessment and Plan (Free Text) Assessment: arthritis generalised weekness difficulty ambulating ri Plan: cont as per orders need geetha
--- NOTE | 2017-03-21 23:05 | CP.PCM.PN ---
Subjective - Date & Time of Evaluation Date of Evaluation: 03/21/17 Time of Evaluation: 23:02 - Subjective Subjective: She is more stable and her chronic mental changes are unchanged. There are no documented seizures. Right hip pain and bilateral Knees pain remain unchanged. She has difficulty walking. Objective - Vital Signs/Intake and Output Vital Signs (last 24 hours): Temp Pulse Resp BP Pulse Ox 98.5 F 98 H 20 112/73 98 03/21/17 16:56 03/21/17 17:48 03/21/17 16:56 03/21/17 17:48 03/21/17 16:56 Intake and Output: 03/21/17 03/22/17 18:59 06:59 Intake Total 400 Balance 400 - Medications Medications: Current Medications Alprazolam (Xanax) 0.25 mg PO Q8H PRN PRN Reason: Anxiety Stop: 03/25/17 23:27 Aspirin (Ecotrin) 81 mg PO DAILY [facility] Last Admin: 03/21/17 10:22 Dose: 81 mg Calcium/Vitamin D (Oscal-D 250 Mg-125 Units Tab) 1 tab PO DAILY [facility] Carvedilol (Coreg) 3.125 mg PO BID [facility] Last Admin: 03/21/17 17:49 Dose: 3.125 mg Enoxaparin Sodium (Lovenox) 30 mg SC DAILY [facility] Last Admin: 03/21/17 10:21 Dose: 30 mg Folic Acid (Folic Acid) 1 mg PO DAILY [facility] Last Admin: 03/21/17 10:22 Dose: 1 mg Ceftriaxone Sodium 1 gm/ (Sodium Chloride) 100 mls @ 100 mls/hr IVPB Q24H [facility] Last Admin: 03/21/17 16:39 Dose: 100 mls/hr Levetiracetam (Keppra) 500 mg PO DAILY [facility] Last Admin: 03/21/17 10:22 Dose: 500 mg Levothyroxine Sodium (Synthroid) 50 mcg PO DAILY@0630 [facility] Last Admin: 03/21/17 05:57 Dose: 50 mcg Rosuvastatin Calcium (Crestor) 10 mg PO HS [facility] Last Admin: 03/21/17 21:42 Dose: 10 mg Vitamin B Complex/Folic Acid (Berroca) 1 tab PO DAILY [facility] Last Admin: 03/21/17 10:22 Dose: 1 tab - Labs Labs: 03/18/17 10:48 03/21/17 06:39 PT 12.1 SECONDS (9.7-12.2) 03/18/17 10:48 INR 1.1 03/18/17 10:48 APTT 26 SECONDS (21-34) 03/18/17 10:48 Assessment and Plan (1) Acute on chronic renal insufficiency Status: Acute (2) Weakness Status: Acute (3) Chest pain Status: Acute (4) Hypothyroid Status: Acute (5) Multiple contusions Status: Acute (6) CVA (cerebral vascular accident) Status: Acute (7) Seizure Status: Acute
[2017-03-22] MEDS: Levothyroxine 50 MCG TAB PO SCH (05:58)
[2017-03-22] MEDS: Enoxaparin 30 mg Syringe SC SCH (09:15)
[2017-03-22] MEDS: Calcium-Vit D 250 mg-125 Units Tab UD PO SCH (09:16)
--- NOTE | 2017-03-22 10:44 | CP.PCM.PN ---
Subjective - Date & Time of Evaluation Date of Evaluation: 03/22/17 Time of Evaluation: 10:41 - Subjective Subjective: in chair today weeke canot walk without help Objective - Vital Signs/Intake and Output Vital Signs (last 24 hours): Temp Pulse Resp BP Pulse Ox 98.2 F 80 20 125/81 97 03/22/17 07:00 03/22/17 07:00 03/22/17 07:00 03/22/17 07:00 03/22/17 07:00 Intake and Output: 03/22/17 03/22/17 06:59 18:59 Intake Total 500 Balance 500 - Medications Medications: Current Medications Alprazolam (Xanax) 0.25 mg PO Q8H PRN PRN Reason: Anxiety Stop: 03/25/17 23:27 Aspirin (Ecotrin) 81 mg PO DAILY [facility] Last Admin: 03/22/17 09:16 Dose: 81 mg Calcium/Vitamin D (Oscal-D 250 Mg-125 Units Tab) 1 tab PO DAILY [facility] Last Admin: 03/22/17 09:16 Dose: 1 tab Carvedilol (Coreg) 3.125 mg PO BID [facility] Last Admin: 03/22/17 09:16 Dose: 3.125 mg Enoxaparin Sodium (Lovenox) 30 mg SC DAILY [facility] Last Admin: 03/22/17 09:15 Dose: 30 mg Folic Acid (Folic Acid) 1 mg PO DAILY [facility] Last Admin: 03/22/17 09:16 Dose: 1 mg Ceftriaxone Sodium 1 gm/ (Sodium Chloride) 100 mls @ 100 mls/hr IVPB Q24H [facility] Last Admin: 03/21/17 16:39 Dose: 100 mls/hr Levetiracetam (Keppra) 500 mg PO DAILY [facility] Last Admin: 03/22/17 09:16 Dose: 500 mg Levothyroxine Sodium (Synthroid) 50 mcg PO DAILY@0630 [facility] Last Admin: 03/22/17 05:58 Dose: 50 mcg Rosuvastatin Calcium (Crestor) 10 mg PO HS [facility] Last Admin: 03/21/17 21:42 Dose: 10 mg Vitamin B Complex/Folic Acid (Berroca) 1 tab PO DAILY [facility] Last Admin: 03/22/17 09:16 Dose: 1 tab - Labs Labs: 03/18/17 10:48 03/21/17 06:39 PT 12.1 SECONDS (9.7-12.2) 03/18/17 10:48 INR 1.1 03/18/17 10:48 APTT 26 SECONDS (21-34) 03/18/17 10:48 - Constitutional Appears: Non-toxic - Head Exam Head Exam: NORMAL INSPECTION - Eye Exam Eye Exam: Normal appearance Pupil Exam: NORMAL ACCOMODATION - ENT Exam ENT Exam: Mucous Membranes Moist - Neck Exam Neck Exam: Full ROM - Respiratory Exam Respiratory Exam: NORMAL BREATHING PATTERN - Cardiovascular Exam Cardiovascular Exam: REGULAR RHYTHM - GI/Abdominal Exam GI & Abdominal Exam: Normal Bowel Sounds - Exam Exam: NORMAL INSPECTION External exam: NORMAL EXTERNAL EXAM - Extremities Exam Extremities Exam: Normal Inspection - Neurological Exam Neurological Exam: Oriented x3 - Psychiatric Exam Psychiatric exam: Normal Mood - Skin Skin Exam: Normal Color Assessment and Plan - Assessment and Plan (Free Text) Assessment: hyperparathyroid urinary tract infection Plan: cont iv ab repeat u/a endocrin consult
[2017-03-22 12:00] LABS: RBC 3.46 Mil/uL (3.80-5.20)
[2017-03-22 12:09] LABS: MEAN CELL VOLUME 90.3 fL (81.0-99.0); MEAN CORPUSCULAR HEMOGLOBIN 30.5 pg (27.0-31.0); MEAN CORPUSCULAR HGB CONC 33.7 g/dL (33.0-37.0); MEAN PLATELET VOLUME 9.1 fL (7.2-11.7); RED CELL DISTRIBUTION WIDTH 13.4 % (11.5-14.5); WHITE BLOOD COUNT 6.6 K/uL (4.8-10.8)
[2017-03-22 12:19] LABS: HEMOGLOBIN 10.6 g/dL (11.0-16.0)
[2017-03-22 12:24] LABS: ALBUMIN 3.4 g/dL (3.5-5.0); CALCIUM 8.5 mg/dl (8.6-10.4)
--- NOTE | 2017-03-22 16:23 | CP.PCM.PN ---
Subjective - Date & Time of Evaluation Date of Evaluation: 03/22/17 Time of Evaluation: 11:00 - Subjective Subjective: Follow up Nephrology Consultation: Assessment: Stable Acute Kidney Injury (N17.9) likely due to pre-renal state improved with IVF Hypertensive Chronic Kidney Disease (I12.9) Chronic Kidney Disease (N18.3) Stage 3 with 1500 mg proteinuria (R80.9) likely due to HTN Anemia (D64.9), HTN (I12.9), dementia, seizure, hypothyroidism UTI Plan No acute need for renal replacement therapy at this time. Hypertension controlled. Patient not on ACEI/ARB as BP controlled. will consider if BP higher Monitor Input/Output, daily weights and renal function with basic metabolic panel pt encouraged for more oral fluid intake Dose meds/antibiotics for reduced GFR. Avoid fleets enema/magnesium based laxatives. Avoid nephrotoxins/NSAIDs/ iodinated contrast (unless needed emergently) Glycemic control Further work up/management as per primary team pt stable for d/c from renal perspective when planned by team Thanks for allowing me to participate in care of your patient. Will follow patient with you. Please call if any Qs. d/w son and team Dr Anival Jesus Office: [phone] reason for consult: TOVA HPI: Pt is a 87 F with hx of Alzheimer's Dementia, Arthritis, HTN, Hypercholesterolemia, Hypothyroidism, Seizures and CKD stage 3 with baseline cr1.3-1.7 in 2016 came with c/o feneralised fatigue and weakness and hip pain. renal consult for TOVA/CKD management Denies OTC/herbal meds or NSAIDs No recent iodinated contrast exposure. No obvious episodes of low BP. son bedside states, she has good appetite with food intake but not much of fluid intake though ROS: Cardiovascular: No chest pain. Pulmonary: No shortness of breath Gastrointestinal: denies abdominal pain No nausea. No vomiting. Genitourinary: No pain while urinating. Denies blood in urine. All other negative except as in HPI. overall very limited due to her dementia. Physical Examination: General Appearance: Comfortable, in no acute respiratory distress, co-operative . Vitals reviewed and noted as below Head; Atraumatic, normocephalic ENT: no ulcers no thrush. Tongue is midline. Oropharynx: no rash or ulcers. EYES: Pupils are equal, round and reactive to light accommodation. Eye muscles and extraocular movement intact. Sclera is anicteric. Neck; supple no lymphadenopathy, no thyromegaly or bruit Lungs: Normal respiratory rate/effort. Breath sounds bilateral equal and clear Heart: Normal rate. s1s2 normal. No rub or gallop. Extremities: no edema. No varicose veins Neurological: Patient is alert, awake and demented. No focal deficit. Strength bilateral appropriate and equal Skin: Warm and dry. Normal turgor. No rash. Palpitation: Normal elasticity for age Abdomen: Abdomen is soft. Bowel sounds +. There is no abdominal tenderness, no guarding/rigidity no organomegaly Psych: normal insight and normal affect/mood MSK: no joint tenderness or swelling. Digits and nails normal, no deformity : kidney or bladder not palpable Labs/imaging reviewed. Past medical history, past surgical history, family history, social history, allergy reviewed and noted as below Family hx: no hx of CKD. Rest non-contributory UA 2+ protein small blood. echo 2016: normal LVEF renal sono: echogenic kidneys Objective - Vital Signs/Intake and Output Vital Signs (last 24 hours): Temp Pulse Resp BP Pulse Ox 98.2 F 80 20 125/81 97 03/22/17 07:00 03/22/17 15:18 03/22/17 07:00 03/22/17 15:18 03/22/17 15:18 Intake and Output: 03/22/17 03/22/17 06:59 18:59 Intake Total 500 500 Balance 500 500 - Medications Medications: Current Medications Alprazolam (Xanax) 0.25 mg PO Q8H PRN PRN Reason: Anxiety Stop: 03/25/17 23:27 Aspirin (Ecotrin) 81 mg PO DAILY [facility] Last Admin: 03/22/17 09:16 Dose: 81 mg Calcium/Vitamin D (Oscal-D 250 Mg-125 Units Tab) 1 tab PO DAILY [facility] Last Admin: 03/22/17 09:16 Dose: 1 tab Carvedilol (Coreg) 3.125 mg PO BID [facility] Last Admin: 03/22/17 09:16 Dose: 3.125 mg Enoxaparin Sodium (Lovenox) 30 mg SC DAILY [facility] Last Admin: 03/22/17 09:15 Dose: 30 mg Folic Acid (Folic Acid) 1 mg PO DAILY [facility] Last Admin: 03/22/17 09:16 Dose: 1 mg Ceftriaxone Sodium 1 gm/ (Sodium Chloride) 100 mls @ 100 mls/hr IVPB Q24H [facility] Last Admin: 03/21/17 16:39 Dose: 100 mls/hr Levetiracetam (Keppra) 500 mg PO DAILY [facility] Last Admin: 03/22/17 09:16 Dose: 500 mg Levothyroxine Sodium (Synthroid) 50 mcg PO DAILY@0630 [facility] Last Admin: 03/22/17 05:58 Dose: 50 mcg Rosuvastatin Calcium (Crestor) 10 mg PO HS [facility] Last Admin: 03/21/17 21:42 Dose: 10 mg Vitamin B Complex/Folic Acid (Berroca) 1 tab PO DAILY [facility] Last Admin: 03/22/17 09:16 Dose: 1 tab - Labs Labs: 03/22/17 11:46 03/22/17 11:46 PT 12.1 SECONDS (9.7-12.2) 03/18/17 10:48 INR 1.1 03/18/17 10:48 APTT 26 SECONDS (21-34) 03/18/17 10:48
--- NOTE | 2017-03-22 22:07 | CP.PCM.CON ---
History of Present Illness - History of Present Illness History of Present Illness: hyperparathyroidism Past Patient History - Infectious Disease Hx of Infectious Diseases: None - Past Medical History & Family History Past Medical History?: Yes - Past Social History Smoking Status: Never Smoked - CARDIAC Hx Hypercholesterolemia: Yes Hx Hypertension: Yes - PULMONARY Hx Tuberculosis: No - NEUROLOGICAL Hx Alzheimer's Disease: Yes Hx Dementia: Yes Hx Seizures: Yes - HEENT Hx HEENT Problems: No - RENAL Hx Chronic Kidney Disease: No - ENDOCRINE/METABOLIC Hx Hypothyroidism: Yes - HEMATOLOGICAL/ONCOLOGICAL Hx Blood Disorders: No Hx Cancer: No - INTEGUMENTARY Hx Dermatological Problems: No - MUSCULOSKELETAL/RHEUMATOLOGICAL Hx Arthritis: Yes Hx Falls: Yes - GASTROINTESTINAL Hx Gastrointestinal Disorders: No Other/Comment: hx of twisted intestine - GENITOURINARY/GYNECOLOGICAL Hx Genitourinary Disorders: No Hx Sexually Transmitted Disorders: No - PSYCHIATRIC Hx Psychophysiologic Disorder: No Hx Substance Use: No - SURGICAL HISTORY Hx Appendectomy: Yes Hx Cholecystectomy: Yes - ANESTHESIA Hx Anesthesia: Yes Hx Anesthesia Reactions: No Hx Malignant Hyperthermia: No Meds Allergies/Adverse Reactions: Allergies Allergy/AdvReac Type Severity Reaction Status Date / Time No Known Allergies Allergy Verified 03/18/17 15:09 - Medications Medications: Current Medications Alprazolam (Xanax) 0.25 mg PO Q8H PRN PRN Reason: Anxiety Stop: 03/25/17 23:27 Aspirin (Ecotrin) 81 mg PO DAILY [facility] Last Admin: 03/22/17 09:16 Dose: 81 mg Calcium/Vitamin D (Oscal-D 250 Mg-125 Units Tab) 1 tab PO DAILY [facility] Last Admin: 03/22/17 09:16 Dose: 1 tab Carvedilol (Coreg) 3.125 mg PO BID [facility] Last Admin: 03/22/17 17:23 Dose: 3.125 mg Enoxaparin Sodium (Lovenox) 30 mg SC DAILY [facility] Last Admin: 03/22/17 09:15 Dose: 30 mg Folic Acid (Folic Acid) 1 mg PO DAILY [facility] Last Admin: 03/22/17 09:16 Dose: 1 mg Ceftriaxone Sodium 1 gm/ (Sodium Chloride) 100 mls @ 100 mls/hr IVPB Q24H [facility] Last Admin: 03/22/17 16:36 Dose: 100 mls/hr Levetiracetam (Keppra) 500 mg PO DAILY [facility] Last Admin: 03/22/17 09:16 Dose: 500 mg Levothyroxine Sodium (Synthroid) 50 mcg PO DAILY@0630 [facility] Last Admin: 03/22/17 05:58 Dose: 50 mcg Rosuvastatin Calcium (Crestor) 10 mg PO HS [facility] Last Admin: 03/21/17 21:42 Dose: 10 mg Vitamin B Complex/Folic Acid (Berroca) 1 tab PO DAILY [facility] Last Admin: 03/22/17 09:16 Dose: 1 tab Results - Vital Signs Recent Vital Signs: Last Vital Signs Temp 98.2 F 03/22/17 07:00 Pulse 80 03/22/17 15:18 Resp 20 03/22/17 07:00 BP 125/81 03/22/17 15:18 Pulse Ox 97 03/22/17 15:18 - Labs Result Diagrams: 03/22/17 11:46 03/22/17 11:46 Labs: Laboratory Results - last 24 hr 03/22/17 03/22/17 11:46 11:46 WBC 6.6 RBC 3.46 L Hgb 10.6 L D Hct 31.3 L MCV 90.3 MCH 30.5 MCHC 33.7 RDW 13.4 Plt Count 137 MPV 9.1 Sodium 137 Potassium 4.2 Chloride 107 Carbon Dioxide 21 L Anion Gap 13 BUN 27 H Creatinine 1.7 H Est GFR ( Amer) 34 Est GFR (Non-Af Amer) 28 Random Glucose 115 H Calcium 8.5 L Total Bilirubin 0.6 AST 27 ALT 20 Alkaline Phosphatase 41 Total Protein 6.7 Albumin 3.4 L Globulin 3.3 Albumin/Globulin Ratio 1.0 Assessment & Plan (1) Hyperparathyroidism Assessment and Plan: Endocrine consult reason for consult: Hyperparathyroidism Source: chart review , pt with dementia Ms. Murcia is 87 y/o admitted for weakness as per chart review pt. with renal insufficiency , also hypothyroidism s/p pituitary MRI today Allergy NKDA Past medical history:HTN , hyperlipidemia , hernia Past surgical history: cholecystectomy, appendectomy Psychiatry history: (+) psychiatry disorder Social history : no smoking , ETOH use , illicit drug use Family history : not doucmented ROS: (+) weakness. HEENT: no earache, change in voice .Respiratory: no cough , sob . CVS :no chest pain, no palpitations . Abdomen: no abdominal pain, no nausea /vomiting, no change bowel movement. PUFF IRONER : no -headache , dizziness. Extremities: no edema, no tremors. Skin: no itching, no rash Physical exam Well-developed AAO x1-2 , ,NAD VSS HEENT: norm cephalic, atraumatic, no lid lag , no exophthalmos NECK: supple, no palpable lymphadenopathy THYROID: no palpable thyromegaly, not tender CHEST: fair air entry, bilateral, CVS: S1,S2 ABDOMEN: bowel sound present, (+) suprpubic tenderness obese, no wide purple striae , no bruises EXTREMITIES: no edema, clubbing or cyanosis, no palpable hand tremors Skin: mild acanthosis nigricans lab: tsh 2.33 , iPTH 75 calcium 8.3 , alb 3.4 , phos 3 , vitamin d 25 45.3 , NTP -PO B 6580 , U/A (+) blood , (+) WBC CT head , no acute event Assessment hyperparathyroidism / CKD hypothyroidism UTI , on antibiotics Dementia obesity plan obtain vitamin d 1,25 [place] level , not on lab list , was requested as a verbal order continue synthroid 50 mcg po qd f/u pituitary MRI Thank you for allowing me to participate in the care of the patient, we will follow with you. Status: Acute (2) Hypothyroid Status: Acute (3) Acute on chronic renal insufficiency Status: Acute
--- NOTE | 2017-03-23 00:46 | CP.PCM.PN ---
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 Seen by nephrology and Endocrinology. Weak, able to Out of bed to chair. Normal V.S. Objective - Vital Signs/Intake and Output Vital Signs (last 24 hours): Temp Pulse Resp BP Pulse Ox 98.6 F 74 20 113/73 98 03/23/17 00:00 03/23/17 00:00 03/23/17 00:00 03/23/17 00:00 03/23/17 00:00 Intake and Output: 03/22/17 03/23/17 18:59 06:59 Intake Total 500 550 Balance 500 550 - Medications Medications: Current Medications Alprazolam (Xanax) 0.25 mg PO Q8H PRN PRN Reason: Anxiety Stop: 03/25/17 23:27 Aspirin (Ecotrin) 81 mg PO DAILY [facility] Last Admin: 03/22/17 09:16 Dose: 81 mg Calcium/Vitamin D (Oscal-D 250 Mg-125 Units Tab) 1 tab PO DAILY [facility] Last Admin: 03/22/17 09:16 Dose: 1 tab Carvedilol (Coreg) 3.125 mg PO BID [facility] Last Admin: 03/22/17 17:23 Dose: 3.125 mg Enoxaparin Sodium (Lovenox) 30 mg SC DAILY [facility] Last Admin: 03/22/17 09:15 Dose: 30 mg Folic Acid (Folic Acid) 1 mg PO DAILY [facility] Last Admin: 03/22/17 09:16 Dose: 1 mg Ceftriaxone Sodium 1 gm/ (Sodium Chloride) 100 mls @ 100 mls/hr IVPB Q24H [facility] Last Admin: 03/22/17 16:36 Dose: 100 mls/hr Levetiracetam (Keppra) 500 mg PO DAILY [facility] Last Admin: 03/22/17 09:16 Dose: 500 mg Levothyroxine Sodium (Synthroid) 50 mcg PO DAILY@0630 [facility] Last Admin: 03/22/17 05:58 Dose: 50 mcg Rosuvastatin Calcium (Crestor) 10 mg PO HS [facility] Last Admin: 03/22/17 21:55 Dose: 10 mg Vitamin B Complex/Folic Acid (Berroca) 1 tab PO DAILY [facility] Last Admin: 01/19/18 09:16 Dose: 1 tab - Labs Labs: 03/22/17 11:46 03/22/17 11:46 PT 12.1 SECONDS (9.7-12.2) 03/18/17 10:48 INR 1.1 03/18/17 10:48 APTT 26 SECONDS (21-34) 03/18/17 10:48 Assessment and Plan (1) Acute on chronic renal insufficiency Status: Acute (2) Weakness Status: Acute (3) Chest pain Status: Acute (4) Hypothyroid Status: Acute (5) Multiple contusions Status: Acute (6) CVA (cerebral vascular accident) Status: Acute (7) Seizure Status: Acute
[2017-03-23] MEDS: Levothyroxine 50 MCG TAB PO SCH (05:30)
[2017-03-23] MEDS ORDERED: Influenza Vaccine 60 mcg/0.5 mL SYR (4YR UP) IM ONE (10:00)
[2017-03-23] MEDS ORDERED: Pneumococcal 23-Valent Vaccine IM ONE (10:00)
[2017-03-23] MEDS: Calcium-Vit D 250 mg-125 Units Tab UD PO SCH (10:06)
[2017-03-23] MEDS: Enoxaparin 30 mg Syringe SC SCH (10:06)
--- NOTE | 2017-03-23 10:34 | CP.PCM.PN ---
Subjective - Date & Time of Evaluation Date of Evaluation: 03/23/17 Time of Evaluation: 10:31 - Subjective Subjective: pt oob weeke no distress Objective - Vital Signs/Intake and Output Vital Signs (last 24 hours): Temp Pulse Resp BP Pulse Ox 98.7 F 86 20 108/72 95 03/23/17 08:39 03/23/17 08:39 03/23/17 08:39 03/23/17 08:39 03/23/17 08:39 Intake and Output: 03/23/17 03/23/17 06:59 18:59 Intake Total 850 Balance 850 - Medications Medications: Current Medications Alprazolam (Xanax) 0.25 mg PO Q8H PRN PRN Reason: Anxiety Stop: 03/25/17 23:27 Aspirin (Ecotrin) 81 mg PO DAILY [facility] Last Admin: 03/23/17 10:07 Dose: 81 mg Calcium/Vitamin D (Oscal-D 250 Mg-125 Units Tab) 1 tab PO DAILY [facility] Last Admin: 03/23/17 10:06 Dose: 1 tab Carvedilol (Coreg) 3.125 mg PO BID [facility] Last Admin: 03/23/17 10:07 Dose: 3.125 mg Enoxaparin Sodium (Lovenox) 30 mg SC DAILY [facility] Last Admin: 03/23/17 10:06 Dose: 30 mg Folic Acid (Folic Acid) 1 mg PO DAILY [facility] Last Admin: 03/23/17 10:07 Dose: 1 mg Ceftriaxone Sodium 1 gm/ (Sodium Chloride) 100 mls @ 100 mls/hr IVPB Q24H [facility] Last Admin: 03/22/17 16:36 Dose: 100 mls/hr Levetiracetam (Keppra) 500 mg PO DAILY [facility] Last Admin: 03/23/17 10:06 Dose: 500 mg Levothyroxine Sodium (Synthroid) 50 mcg PO DAILY@0630 [facility] Last Admin: 03/23/17 05:30 Dose: 50 mcg Rosuvastatin Calcium (Crestor) 10 mg PO HS [facility] Last Admin: 03/22/17 21:55 Dose: 10 mg Vitamin B Complex/Folic Acid (Berroca) 1 tab PO DAILY [facility] Last Admin: 03/23/17 10:06 Dose: 1 tab - Labs Labs: 03/22/17 11:46 03/22/17 11:46 PT 12.1 SECONDS (9.7-12.2) 03/18/17 10:48 INR 1.1 03/18/17 10:48 APTT 26 SECONDS (21-34) 03/18/17 10:48 - Constitutional Appears: Non-toxic - Head Exam Head Exam: NORMAL INSPECTION - Eye Exam Eye Exam: Normal appearance Pupil Exam: NORMAL ACCOMODATION - ENT Exam ENT Exam: Mucous Membranes Moist - Neck Exam Neck Exam: Full ROM - Respiratory Exam Respiratory Exam: Accessory Muscle Use - Cardiovascular Exam Cardiovascular Exam: REGULAR RHYTHM - GI/Abdominal Exam GI & Abdominal Exam: Normal Bowel Sounds - Rectal Exam Rectal Exam: NORMAL INSPECTION - Exam Exam: NORMAL INSPECTION - Skin Skin Exam: Pallor Assessment and Plan - Assessment and Plan (Free Text) Assessment: aneamia pth hi arthritis generalised weekness Plan: forsar and cont as per orders
--- NOTE | 2017-03-23 15:14 | CP.PCM.PN ---
Subjective - Date & Time of Evaluation Date of Evaluation: 03/23/17 Time of Evaluation: 15:11 - Subjective Subjective: Acute Kidney Injury (N17.9) Hypertensive Chronic Kidney Disease (I12.9) Chronic Kidney Disease (N18.3) Stage 3 with 1500 mg proteinuria (R80.9) likely due to HTN Anemia (D64.9), HTN (I12.9), dementia, seizure, hypothyroidism UTI Plan Cr mildly worse wiull start gentle hydration bp well controlled no ata/arb will recheck urine lytes abx for uti - enterococcus in urine not tested for ceftriaxone not sure if being covered suggest ID eval, perhaps ampicillin would cover both discussed w/ hogshead liner. S: feels good + dysuria Physical Examination: General Appearance: Comfortable, in no acute respiratory distress, co-operative . Vitals reviewed and noted as below Head; Atraumatic, normocephalic ENT: no ulcers no thrush. Tongue is midline. Oropharynx: no rash or ulcers. EYES: Pupils are equal, round and reactive to light accommodation. Eye muscles and extraocular movement intact. Sclera is anicteric. Neck; supple no lymphadenopathy, no thyromegaly or bruit Lungs: Normal respiratory rate/effort. Breath sounds bilateral equal and clear Heart: Normal rate. s1s2 normal. No rub or gallop. Extremities: no edema. No varicose veins Neurological: Patient is alert, awake and demented. No focal deficit. Strength bilateral appropriate and equal Skin: Warm and dry. Normal turgor. No rash. Palpitation: Normal elasticity for age Abdomen: Abdomen is soft. Bowel sounds +. There is no abdominal tenderness, no guarding/rigidity no organomegaly Psych: normal insight and normal affect/mood MSK: no joint tenderness or swelling. Digits and nails normal, no deformity : kidney or bladder not palpable Objective - Vital Signs/Intake and Output Vital Signs (last 24 hours): Temp Pulse Resp BP Pulse Ox 98.7 F 86 20 108/72 95 03/23/17 08:39 03/23/17 08:39 03/23/17 08:39 03/23/17 08:39 03/23/17 08:39 Intake and Output: 03/23/17 03/23/17 06:59 18:59 Intake Total 850 300 Balance 850 300 - Medications Medications: Current Medications Alprazolam (Xanax) 0.25 mg PO Q8H PRN PRN Reason: Anxiety Stop: 03/25/17 23:27 Aspirin (Ecotrin) 81 mg PO DAILY [facility] Last Admin: 03/23/17 10:07 Dose: 81 mg Calcium/Vitamin D (Oscal-D 250 Mg-125 Units Tab) 1 tab PO DAILY [facility] Last Admin: 03/23/17 10:06 Dose: 1 tab Carvedilol (Coreg) 3.125 mg PO BID [facility] Last Admin: 03/23/17 10:07 Dose: 3.125 mg Enoxaparin Sodium (Lovenox) 30 mg SC DAILY [facility] Last Admin: 03/23/17 10:06 Dose: 30 mg Folic Acid (Folic Acid) 1 mg PO DAILY [facility] Last Admin: 03/23/17 10:07 Dose: 1 mg Ceftriaxone Sodium 1 gm/ (Sodium Chloride) 100 mls @ 100 mls/hr IVPB Q24H [facility] Last Admin: 03/22/17 16:36 Dose: 100 mls/hr Levetiracetam (Keppra) 500 mg PO DAILY [facility] Last Admin: 03/23/17 10:06 Dose: 500 mg Levothyroxine Sodium (Synthroid) 50 mcg PO DAILY@0630 [facility] Last Admin: 03/23/17 05:30 Dose: 50 mcg Rosuvastatin Calcium (Crestor) 10 mg PO HS [facility] Last Admin: 03/22/17 21:55 Dose: 10 mg Vitamin B Complex/Folic Acid (Berroca) 1 tab PO DAILY [facility] Last Admin: 03/23/17 10:06 Dose: 1 tab - Labs Labs: 03/22/17 11:46 03/22/17 11:46 PT 12.1 SECONDS (9.7-12.2) 03/18/17 10:48 INR 1.1 03/18/17 10:48 APTT 26 SECONDS (21-34) 03/18/17 10:48
--- NOTE | 2017-03-23 17:29 | CP.PCM.PN ---
Subjective - Date & Time of Evaluation Date of Evaluation: 03/23/17 Time of Evaluation: 11:00 - Subjective Subjective: Alert, awake, follows commands, no acute distress. Objective - Vital Signs/Intake and Output Vital Signs (last 24 hours): Temp Pulse Resp BP Pulse Ox 97.9 F 88 20 100/66 99 03/23/17 15:00 03/23/17 15:00 03/23/17 15:00 03/23/17 15:00 03/23/17 15:00 Intake and Output: 03/23/17 03/23/17 06:59 18:59 Intake Total 850 300 Balance 850 300 - Medications Medications: Current Medications Alprazolam (Xanax) 0.25 mg PO Q8H PRN PRN Reason: Anxiety Stop: 03/25/17 23:27 Aspirin (Ecotrin) 81 mg PO DAILY [facility] Last Admin: 03/23/17 10:07 Dose: 81 mg Calcium/Vitamin D (Oscal-D 250 Mg-125 Units Tab) 1 tab PO DAILY [facility] Last Admin: 03/23/17 10:06 Dose: 1 tab Carvedilol (Coreg) 3.125 mg PO BID [facility] Last Admin: 03/23/17 10:07 Dose: 3.125 mg Enoxaparin Sodium (Lovenox) 30 mg SC DAILY [facility] Last Admin: 03/23/17 10:06 Dose: 30 mg Folic Acid (Folic Acid) 1 mg PO DAILY [facility] Last Admin: 03/23/17 10:07 Dose: 1 mg Sodium Chloride (Sodium Chloride 0.9%) 1,000 mls @ 60 mls/hr IV .[id number] [facility] Ampicillin 500 mg/ Sodium (Chloride) 100 mls @ 100 mls/hr IVPB Q6H [facility] Last Admin: 03/23/17 16:23 Dose: 100 mls/hr Levetiracetam (Keppra) 500 mg PO DAILY [facility] Last Admin: 03/23/17 10:06 Dose: 500 mg Levothyroxine Sodium (Synthroid) 50 mcg PO DAILY@0630 [facility] Last Admin: 03/23/17 05:30 Dose: 50 mcg Rosuvastatin Calcium (Crestor) 10 mg PO HS [facility] Last Admin: 03/22/17 21:55 Dose: 10 mg Vitamin B Complex/Folic Acid (Berroca) 1 tab PO DAILY [facility] Last Admin: 03/23/17 10:06 Dose: 1 tab - Labs Labs: 03/22/17 11:46 03/22/17 11:46 PT 12.1 SECONDS (9.7-12.2) 03/18/17 10:48 INR 1.1 03/18/17 10:48 APTT 26 SECONDS (21-34) 03/18/17 10:48 Assessment and Plan - Assessment and Plan (Free Text) Assessment: Patient is seen and examined. Alert, awake, confused , follows commands. On iv antibiotics for UTI, ceftriaxone changed to ampicillin as sensitivity showed. Patient has bed at [facility]. Will discharge in the morning, continue antibiotics x7 days. The son agreed with the plan.
[2017-03-23] MEDS: Sodium Chloride 0.9% 1,000 ML IV SCH (17:55)
--- NOTE | 2017-03-24 00:32 | CP.PCM.PN ---
Subjective - Date & Time of Evaluation Date of Evaluation: 03/24/17 Time of Evaluation: 00:20 - Subjective Subjective: She is receiving more hydration by Nephrology for mild Dehydration. Urine Culture is showing UTI, E.Coli and Enterococcus Faecium. Normal V.S She is O.O.B to chair with help. She will be transferred to [facility] in AM after her improvement. Objective - Vital Signs/Intake and Output Vital Signs (last 24 hours): Temp Pulse Resp BP Pulse Ox 97.9 F 88 20 100/66 99 03/23/17 15:00 03/23/17 15:00 03/23/17 15:00 03/23/17 15:00 03/23/17 15:00 Intake and Output: 03/23/17 03/24/17 18:59 06:59 Intake Total 300 860 Balance 300 860 - Medications Medications: Current Medications Alprazolam (Xanax) 0.25 mg PO Q8H PRN PRN Reason: Anxiety Stop: 03/25/17 23:27 Aspirin (Ecotrin) 81 mg PO DAILY [facility] Last Admin: 03/23/17 10:07 Dose: 81 mg Calcium/Vitamin D (Oscal-D 250 Mg-125 Units Tab) 1 tab PO DAILY [facility] Last Admin: 03/23/17 10:06 Dose: 1 tab Carvedilol (Coreg) 3.125 mg PO BID [facility] Last Admin: 03/23/17 18:02 Dose: Not Given Enoxaparin Sodium (Lovenox) 30 mg SC DAILY [facility] Last Admin: 03/23/17 10:06 Dose: 30 mg Folic Acid (Folic Acid) 1 mg PO DAILY [facility] Last Admin: 03/23/17 10:07 Dose: 1 mg Sodium Chloride (Sodium Chloride 0.9%) 1,000 mls @ 60 mls/hr IV .[id number] [facility] Last Admin: 03/23/17 17:55 Dose: Not Given Ampicillin 500 mg/ Sodium (Chloride) 100 mls @ 100 mls/hr IVPB Q6H [facility] Last Admin: 03/23/17 21:20 Dose: 100 mls/hr Levetiracetam (Keppra) 500 mg PO DAILY [facility] Last Admin: 03/23/17 10:06 Dose: 500 mg Levothyroxine Sodium (Synthroid) 50 mcg PO DAILY@0630 [facility] Last Admin: 03/23/17 05:30 Dose: 50 mcg Rosuvastatin Calcium (Crestor) 10 mg PO HS [facility] Last Admin: 03/23/17 21:20 Dose: 10 mg Vitamin B Complex/Folic Acid (Berroca) 1 tab PO DAILY [facility] Last Admin: 03/23/17 10:06 Dose: 1 tab - Labs Labs: 03/22/17 11:46 03/22/17 11:46 PT 12.1 SECONDS (9.7-12.2) 03/18/17 10:48 INR 1.1 03/18/17 10:48 APTT 26 SECONDS (21-34) 03/18/17 10:48 Assessment and Plan (1) Acute on chronic renal insufficiency Status: Acute (2) Weakness Status: Acute (3) Chest pain Status: Acute (4) Hypothyroid Status: Acute (5) Multiple contusions Status: Acute (6) CVA (cerebral vascular accident) Status: Acute (7) Seizure Status: Acute
[2017-03-24 00:52] VITALS: BP 121/77; PULSE 87; TEMP 98.3; O2SAT 94
[2017-03-24] MEDS: Sodium Chloride 0.9% 1,000 ML IV SCH ×2 (04:04→08:11)
[2017-03-24] MEDS: Levothyroxine 50 MCG TAB PO SCH (05:40)
[2017-03-24 09:04] LABS: CALCIUM 8.3 mg/dl (8.6-10.4)
[2017-03-24 09:07] LABS: SQUAMOUS EPITHIAL < 1 /hpf (0-5); URINE BILIRUBIN NEGATIVE (NEGATIVE); URINE BLOOD NEGATIVE (NEGATIVE); URINE CLARITY Clear (Clear); URINE COLOR Yellow (YELLOW); URINE GLUCOSE (UA) NORMAL (Normal); URINE LEUKOCYTE ESTERASE NEG Leu/uL (Negative); URINE NITRATE NEGATIVE (NEGATIVE); URINE PROTEIN NEGATIVE (NEGATIVE); URINE UROBILINOGEN NORMAL mg/dL (0.2-1.0)
[2017-03-24 09:18] LABS: CREATININE, RANDOM URINE 35.7 mg/dL
[2017-03-24] MEDS: Calcium-Vit D 250 mg-125 Units Tab UD PO SCH (09:39)
[2017-03-24] MEDS: Enoxaparin 30 mg Syringe SC SCH (09:39)
--- NOTE | 2017-03-25 11:55 | EEG ---
DATE: The record was obtained for a history of generalized weakness, confusion, altered mental status. The patient is known to have a history of seizure disorder and is on Keppra 500 mg q.12 hours and is admitted for the altered mental status and difficulties standing or walking. The record was obtained while the patient was awake and drowsy. The record was symmetrically equal on both sides with a velocity of 6 to 7 cycles per second. The waves are fairly formed and fairly organized with posterior distribution, moderate in amplitude, reactive to eye opening with attenuation. There were no abnormal discharges. No spike, no polyspike. No sharp wave, no focal slowing, no paroxysmal discharges. The record did not show any changes with photic stimulation. Hyperventilation was omitted. There were eye movement artifacts, electrode artifacts, and muscle movement artifacts. There were no periods of drowsiness and there were no periods of sleeping. In summary, this is an abnormal record, remarkable for generalized slowing, which is consistent with encephalopathy. Clinical correlation is recommended. Lin Vela MD
--- NOTE | 2017-04-09 21:20 | DS ---
HISTORY OF PRESENT ILLNESS: The patient came into the emergency room on 03/18/2017. She is an 87-year-old female, who came into the emergency room because of generalized weakness, dizziness, feeling fatigue, nausea, discomfort, headache, vomiting, blurring vision, and she is to be in shortness of breath, cough and fever. PHYSICAL EXAMINATION: VITAL SIGNS: Afebrile 98, blood pressure was 108/66, pulse was regular. HOSPITAL COURSE: She had the blood test which shows CBC normal and blood sugar was 147. BUN 33 and creatinine 2.3 to be acute renal insufficiency and she has dementia, history of Alzheimer and she was put in observation for weakness and the acute on chronic renal insufficiency, but she was becoming more confused and she has Alzheimer. She was seen by Dr. Lin Vela for consultation and she was still weak. Physical exam unremarkable. Her CAT scan shows no intracranial hemorrhage or infraction, but the changes is appropriate to her age plus she has maxillary sinus infection. The patient's medications were Xanax, aspirin, Lovenox, folic acid, Motrin p.r.n., Keppra 500 mg once a day, Synthroid 50 mcg and she has Crestor at night time, B complex vitamins. Her labs were stable. Assessment was acute on chronic renal insufficiency, weakness, hyperthyroid and dementia. She is to continue current medications and she was also seen by the tail ripper. She was out of bed. No distress. She was little weak. She continued on the medications. Her lab was stable. Her BUN improved 25 and creatinine was 1.7, which is better than when she came in. She was having anemia, arthritis, renal insufficiency, weakness. She was stable, following commands, so she was discharged on her medications. She was having urinary tract infection. She was taking ceftriaxone, it was shifted to ampicillin and she was referred to care rehabilitation to followup there. To continue on all her medications. FINAL DIAGNOSES: Acute generalized weakness, dementia, urinary tract infection, renal insufficiency, possible dehydration, anemia. Jennifer Mujica MD
== END 2017-03-24 12:30 | DRG 683 ==
LOC: C.ER 09:49 → C.9E 14:31 → C.3T 19:41 → OBSVTOIN 03-20 10:53 → C.3T 03-22 20:05
PROVIDERS: ADMIT Internal Medicine; ATTEND Internal Medicine
DX: N17.9 Acute kidney failure, unspecified (principal); N39.0 Urinary tract infection, site not specified; D64.9 Anemia, unspecified; R53.1 Weakness; N25.81 Secondary hyperparathyroidism of renal origin; I12.9 Hypertensive chronic kidney disease with stage 1 through stage 4 chronic kidney disease, or unspecified chronic kidney disease; G30.9 Alzheimer's disease, unspecified; F02.80 Dementia in other diseases classified elsewhere, unspecified severity, without behavioral disturbance, psychotic disturbance, mood disturbance, and anxiety; R56.9 Unspecified convulsions; E86.0 Dehydration; K44.9 Diaphragmatic hernia without obstruction or gangrene; N18.3 Chronic kidney disease, stage 3 (moderate); E78.5 Hyperlipidemia, unspecified; E03.9 Hypothyroidism, unspecified; B96.20 Unspecified Escherichia coli [E. coli] as the cause of diseases classified elsewhere; J32.0 Chronic maxillary sinusitis; E66.9 Obesity, unspecified; E78.00 Pure hypercholesterolemia, unspecified; M19.90 Unspecified osteoarthritis, unspecified site; Z86.73 Personal history of transient ischemic attack (TIA), and cerebral infarction without residual deficits; Z90.49 Acquired absence of other specified parts of digestive tract

== ENCOUNTER 2017-05-13 02:22 | Inpatient (IN) | payer MEDICARE, MEDICAID ==
[2017-05-13 02:23] VITALS: BMI 27.4
--- NOTE | 2017-05-13 02:57 | C.PDOC ---
History Of Present Illness 87 y/o female brought in by EMS for abdominal pain. As per EMS, son states patient fell off the commode onto her right side. Patient now complaining of pain to the right lower abdomen and right hip. Time Seen by Provider: 05/13/17 03:08 Chief Complaint (Nursing): Abdominal Pain History Per: Patient History/Exam Limitations: clinical condition (dementia) Current Symptoms Are (Timing): Still Present Context: Recent Trauma Additional History Per: EMS, Family Past Medical History Reviewed: Historical Data, Nursing Documentation, Vital Signs Vital Signs: Last Vital Signs Temp 98.6 F 05/13/17 05:05 Pulse 96 H 05/13/17 05:05 Resp 16 05/13/17 05:05 BP 117/67 05/13/17 05:05 Pulse Ox 98 05/13/17 05:05 - Medical History PMH: Alzheimer's Disease, Arthritis, Dementia, Hiatal Hernia, HTN, Hypercholesterolemia, Hypothyroidism, Seizures Denies: Chronic Kidney Disease, Sexually Transmitted Disease Surgical History: Appendectomy, Cholecystectomy Family History: States: Unknown Family Hx - Social History Hx Tobacco Use: No Hx Alcohol Use: No Hx Substance Use: No - Immunization History Hx Tetanus Toxoid Vaccination: No Hx Influenza Vaccination: No Hx Pneumococcal Vaccination: No Review Of Systems Review Of Systems: ROS cannot be obtained secondary to pt's inabilty to answer questions. Constitutional: Negative for: Fever Gastrointestinal: Positive for: Abdominal Pain. Negative for: Vomiting Musculoskeletal: Positive for: Leg Pain (Rt hip) Physical Exam - Physical Exam Appears: Non-toxic, No Acute Distress Skin: Normal Color, Warm, Dry, No Ecchymosis Head: Atraumatic, Normacephalic Eye(s): bilateral: Normal Inspection, PERRL, EOMI Nose: Normal Oral Mucosa: Moist Neck: Normal ROM, Supple Chest: Symmetrical Cardiovascular: Rhythm Regular, No Murmur Respiratory: Normal Breath Sounds, No Accessory Muscle Use Gastrointestinal/Abdominal: Soft, Tenderness (minimal tenderness to right suprapubic area), No Mass, No Distention, Other (Old mid-suprapubic scar) Back: No CVA Tenderness, No Vertebral Tenderness Extremity: Normal ROM (B/L LE, no limitation of ROM to Rt hip, no ecchymosis, no temderness) Extremity: Bilateral: Atraumatic, Normal Color And Temperature, Normal ROM Pulses: Left Dorsalis Pedis: Normal, Right Dorsalis Pedis: Normal Neurological/Psych: Normal Speech, Other (Awake and alert; Appears to be at baseline as per EMS) Disoriented To: Place, Time ED Course And Treatment - Laboratory Results Result Diagrams: 18 03:58 0318 03:58 - Other Rad obstructive series X-Ray: Interpreted by Me, Viewed By Me Interpretation: Moderate stools, (+) hardware in place to right hip Progress Note: Labs and x-ray obstructive series ordered. Pt received fleet enema with BM and reports BM. Pt is comfortable, sleeping in ED. Pending transport home by family. ( attempted several times to comtact son with no answer) Disposition Counseled Patient/Family Regarding: Diagnosis, Need For Followup, Rx Given - Disposition Disposition Time: 06:40 Condition: STABLE Additional Instructions: Please follow up with PMD Take meds as directed Return to ER if worse Prescriptions: Docusate Sodium [Colace] 100 mg PO BID #14 capsule Instructions: High Fiber Diet, Constipation, Adult (DC) Forms: [employer] (Macedonian) - Clinical Impression Clinical Impression: Constipation - PA / BROADCAST OPERATIONS TECHNICIAN / Resident Statement MD/DO has reviewed & agrees with the documentation as recorded. - Scribe Statement The provider has reviewed the documentation as recorded by the Scribe (Hilary Granados) All medical record entries made by the Scribe were at my direction and personally dictated by me. I have reviewed the chart and agree that the record accurately reflects my personal performance of the history, physical exam, medical decision making, and the department course for this patient. I have also personally directed, reviewed, and agree with the discharge instructions and disposition.
[2017-05-13 04:02] LABS: HEMOGLOBIN 11.8 g/dL (11.0-16.0); WHITE BLOOD COUNT 7.2 K/uL (4.8-10.8)
[2017-05-13 04:07] LABS: BASO # 0.1 K/uL (0.0-0.2); BASO % 0.7 % (0.0-2.0); EOS # 0.1 K/uL (0.0-0.7); EOS % 1.2 % (0.0-4.0); LYMPH # 1.1 K/uL (1.0-4.3); LYMPH % 15.3 % (20.0-40.0); MEAN CELL VOLUME 89.9 fL (81.0-99.0); MEAN CORPUSCULAR HEMOGLOBIN 30.3 pg (27.0-31.0); MEAN CORPUSCULAR HGB CONC 33.7 g/dL (33.0-37.0); MEAN PLATELET VOLUME 8.8 fL (7.2-11.7); MONO # 0.5 K/uL (0.0-0.8); MONO % 7.5 % (0.0-10.0); NEUT # 5.4 K/uL (1.8-7.0); NEUT % 75.3 % (50.0-75.0); RBC 3.89 Mil/uL (3.80-5.20); RED CELL DISTRIBUTION WIDTH 14.4 % (11.5-14.5)
[2017-05-13 04:10] LABS: ALB/GLOB RATIO 1.1 (1.0-2.1); CALCIUM 9.3 mg/dl (8.6-10.4)
--- NOTE | 2017-05-13 08:43 | RAD ---
PROCEDURE: Radiographs of the chest and abdomen (obstructive series) HISTORY: abd pain COMPARISON: No prior. TECHNIQUE: AP radiograph of the chest, with upright and supine radiographs of the abdomen. FINDINGS: CHEST: Lungs: Clear. Cardiovascular: Normal size heart. No pulmonary vascular congestion. Pleura: No pleural fluid. No pneumothorax. Other findings: None. ABDOMEN AND PELVIS: Bowel: No evidence bowel obstruction. Mild retained feces. Status post cholecystectomy. Free air: No free air. However, no true upright film is provided for evaluation. Semi upright film demonstrates no free intraperitoneal air Bones: Status post right hip arthroplasty. Other findings: None. IMPRESSION: No evidence of bowel obstruction.
[2017-05-13] MEDS: Dextrose 5%/0.45% NS 1,000 ML IV SCH (17:46)
[2017-05-14] MEDS: Dextrose 5%/0.45% NS 1,000 ML IV SCH ×2 (07:03→22:16)
[2017-05-14 07:09] LABS: SQUAMOUS EPITHIAL 1 /hpf (0-5); URINE BILIRUBIN NEGATIVE (NEGATIVE); URINE BLOOD NEGATIVE (NEGATIVE); URINE CLARITY Clear (Clear); URINE COLOR Yellow (YELLOW); URINE GLUCOSE (UA) NORMAL (Normal); URINE LEUKOCYTE ESTERASE NEG Leu/uL (Negative); URINE PROTEIN NEGATIVE (NEGATIVE); URINE UROBILINOGEN NORMAL mg/dL (0.2-1.0)
[2017-05-14 08:13] LABS: CALCIUM 8.8 mg/dl (8.6-10.4)
[2017-05-14] MEDS ORDERED: Levothyroxine 50 MCG TAB PO SCH (10:00)
--- NOTE | 2017-05-14 11:24 | CP.PCM.HP ---
History of Present Illness - History of Present Illness History of Present Illness: pt had constipation fell from comode Present on Admission - Present on Admission Any Indicators Present on Admission: No Review of Systems - Constitutional Constitutional: As Per HPI, Fatigue - EENT Eyes: As Per HPI Ears: As Per HPI Nose/Mouth/Throat: As Per HPI - Breasts Breasts: As Per HPI - Cardiovascular Cardiovascular: As Per HPI - Respiratory Respiratory: As Per HPI - Genitourinary Genitourinary: As Per HPI - Reproductive: Female Reproductive:Female: As Per HPI - Menstruation Menstruation: As Per HPI - Musculoskeletal Musculoskeletal: Muscle Weakness - Integumentary Integumentary: As Per HPI - Neurological Neurological: As Per HPI - Psychiatric Psychiatric: As Per HPI - Endocrine Endocrine: As Per HPI - Hematologic/Lymphatic Hematologic: As Per HPI Past Patient History - Infectious Disease Hx of Infectious Diseases: None - Past Medical History & Family History Past Medical History?: Yes - Past Social History Smoking Status: Never Smoked - CARDIAC Hx Hypercholesterolemia: Yes Hx Hypertension: Yes - PULMONARY Hx Tuberculosis: No - NEUROLOGICAL Hx Alzheimer's Disease: Yes Hx Dementia: Yes Hx Seizures: Yes - HEENT Hx HEENT Problems: No - RENAL Hx Chronic Kidney Disease: No - ENDOCRINE/METABOLIC Hx Hypothyroidism: Yes - HEMATOLOGICAL/ONCOLOGICAL Hx Blood Disorders: No Hx Cancer: No - INTEGUMENTARY Hx Dermatological Problems: No - MUSCULOSKELETAL/RHEUMATOLOGICAL Hx Arthritis: Yes - GASTROINTESTINAL Hx Gastrointestinal Disorders: No Other/Comment: hx of twisted intestine - GENITOURINARY/GYNECOLOGICAL Hx Sexually Transmitted Disorders: No - PSYCHIATRIC Hx Substance Use: No - SURGICAL HISTORY Hx Appendectomy: Yes Hx Cholecystectomy: Yes - ANESTHESIA Hx Anesthesia: Yes Hx Anesthesia Reactions: No Hx Malignant Hyperthermia: No Meds Home Medications: Home Medication List Medication Instructions Recorded Confirmed Type Docusate Sodium [Colace] 100 mg PO BID #14 capsule 05/13/17 Rx Allergies/Adverse Reactions: Allergies Allergy/AdvReac Type Severity Reaction Status Date / Time No Known Allergies Allergy Verified 03/18/17 15:09 Physical Exam - Constitutional Appears: Non-toxic - Head Exam Head Exam: ATRAUMATIC - Eye Exam Eye Exam: Normal appearance Pupil Exam: PERRL - ENT Exam ENT Exam: Mucous Membranes Moist - Neck Exam Neck exam: Positive for: Full Rom - Respiratory Exam Respiratory Exam: NORMAL BREATHING PATTERN - Cardiovascular Exam Cardiovascular Exam: REGULAR RHYTHM - GI/Abdominal Exam GI & Abdominal Exam: Distended, Tenderness - Rectal Exam Rectal Exam: NORMAL INSPECTION - Exam Exam: NORMAL INSPECTION - Extremities Exam Extremities exam: Positive for: normal inspection - Neurological Exam Neurological exam: Normal Gait - Psychiatric Exam Psychiatric exam: Normal Affect - Skin Skin Exam: Pallor Results - Vital Signs Recent Vital Signs: Last Vital Signs Temp 97.9 F 05/14/17 07:53 Pulse 87 05/14/17 07:53 Resp 20 05/14/17 07:53 BP 113/72 05/14/17 07:53 Pulse Ox 98 05/14/17 07:53 - Labs Result Diagrams: 05/13/17 03:58 05/14/17 07:42 Labs: Laboratory Results - last 24 hr 05/14/17 05/14/17 06:52 07:42 Sodium 143 Potassium 3.9 Chloride 108 H Carbon Dioxide 26 Anion Gap 13 BUN 27 H Creatinine 1.7 H Est GFR ( Amer) 34 Est GFR (Non-Af Amer) 28 Random Glucose 105 Calcium 8.8 Urine Color Yellow Urine Clarity Clear Urine pH 5.0 Ur Specific [place] 1.013 Urine Protein Negative Urine Glucose (UA) Normal Urine Ketones Negative Urine Blood Negative Urine Nitrate Negative Urine Bilirubin Negative Urine Urobilinogen Normal Ur Leukocyte Esterase Neg Urine WBC (Auto) 4 Urine RBC (Auto) 1 Ur Squamous Epith Cells 1 Assessment & Plan - Assessment and Plan (Free Text) Assessment: abd pain constipation generalised weekness s/p fall from comode aneamia Plan: as per orders - Date & Time Date: 05/14/17 Time: 11:26
[2017-05-15] MEDS ORDERED: Levothyroxine 50 MCG TAB PO SCH (06:30)
[2017-05-15 07:36] VITALS: PULSE 76
--- NOTE | 2017-05-15 10:55 | CP.PCM.PN ---
Subjective - Date & Time of Evaluation Date of Evaluation: 05/15/17 Time of Evaluation: 10:53 - Subjective Subjective: abd pain weeke Objective - Vital Signs/Intake and Output Vital Signs (last 24 hours): Temp Pulse Resp BP Pulse Ox 98.4 F 76 29 H 121/78 97 05/15/17 07:00 05/15/17 07:00 05/15/17 07:00 05/15/17 07:00 05/15/17 07:00 Intake and Output: 05/15/17 05/15/17 06:59 18:59 Intake Total 450 Balance 450 - Medications Medications: Current Medications Alprazolam (Xanax) 0.25 mg PO TID PRN PRN Reason: Anxiety Stop: 05/20/17 17:22 Docusate Sodium (Colace) 100 mg PO BID [facility] Last Admin: 05/15/17 09:17 Dose: 100 mg Folic Acid (Folic Acid) 1 mg PO DAILY [facility] Last Admin: 05/15/17 09:17 Dose: 1 mg Heparin Sodium (Porcine) (Heparin) 5,000 units SC Q12 [facility] Last Admin: 05/15/17 09:17 Dose: 5,000 units Dextrose/Sodium Chloride (Dextrose 5%/0.45% Ns 1000 Ml) 1,000 mls @ 70 mls/hr IV .[id number] [facility] Last Admin: 05/14/17 22:16 Dose: Not Given Levetiracetam (Keppra) 500 mg PO DAILY [facility] Last Admin: 05/15/17 09:17 Dose: 500 mg Levothyroxine Sodium (Synthroid) 50 mcg PO 0630 [facility] Last Admin: 05/15/17 05:44 Dose: 50 mcg Rosuvastatin Calcium (Crestor) 10 mg PO HS [facility] Last Admin: 05/14/17 22:16 Dose: 10 mg - Labs Labs: 05/13/17 03:58 05/14/17 07:42 - Constitutional Appears: Non-toxic - Head Exam Head Exam: NORMAL INSPECTION - Eye Exam Eye Exam: Conjunctival injection - ENT Exam ENT Exam: Mucous Membranes Moist - Neck Exam Neck Exam: Full ROM - Respiratory Exam Respiratory Exam: NORMAL BREATHING PATTERN - Cardiovascular Exam Cardiovascular Exam: REGULAR RHYTHM - GI/Abdominal Exam GI & Abdominal Exam: Tenderness, Normal Bowel Sounds - Extremities Exam Extremities Exam: Normal Inspection - Neurological Exam Neurological Exam: Awake - Psychiatric Exam Psychiatric exam: Normal Affect - Skin Skin Exam: Normal Color Assessment and Plan - Assessment and Plan (Free Text) Assessment: s/p fall abd pain s/p chrons disease generalised weekness Plan: pt and d/c plan
[2017-05-15] MEDS: Dextrose 5%/0.45% NS 1,000 ML IV SCH (12:40)
[2017-05-15 15:55] VITALS: BP 135/82; RESP 20; TEMP 98.6; O2SAT 96
--- NOTE | 2017-05-15 16:32 | CP.PCM.PN ---
Subjective - Date & Time of Evaluation Date of Evaluation: 05/15/17 Time of Evaluation: 11:00 - Subjective Subjective: Alert, follows commands, confused, no agitation. Objective - Vital Signs/Intake and Output Vital Signs (last 24 hours): Temp Pulse Resp BP Pulse Ox 98.6 F 76 20 135/82 96 05/15/17 15:53 05/15/17 15:53 05/15/17 15:53 05/15/17 15:53 05/15/17 15:53 Intake and Output: 05/15/17 05/15/17 06:59 18:59 Intake Total 450 Balance 450 - Medications Medications: Current Medications Alprazolam (Xanax) 0.25 mg PO TID PRN PRN Reason: Anxiety Stop: 05/20/17 17:22 Docusate Sodium (Colace) 100 mg PO BID [facility] Last Admin: 05/15/17 09:17 Dose: 100 mg Folic Acid (Folic Acid) 1 mg PO DAILY [facility] Last Admin: 05/15/17 09:17 Dose: 1 mg Heparin Sodium (Porcine) (Heparin) 5,000 units SC Q12 [facility] Last Admin: 05/15/17 09:17 Dose: 5,000 units Levetiracetam (Keppra) 500 mg PO DAILY [facility] Last Admin: 05/15/17 09:17 Dose: 500 mg Levothyroxine Sodium (Synthroid) 50 mcg PO 0630 [facility] Last Admin: 05/15/17 05:44 Dose: 50 mcg Rosuvastatin Calcium (Crestor) 10 mg PO HS [facility] Last Admin: 05/14/17 22:16 Dose: 10 mg - Labs Labs: 05/13/17 03:58 05/14/17 07:42 Assessment and Plan - Assessment and Plan (Free Text) Assessment: Patient admitted after fall from commode, seen and examined. Awake, follows commands ,no acute distress. Rehab therapy advised as per physical therapy but the son refused. Says that he is home24 hours and wants to take her home. Discussed with DR Mujica, plan to discharge home with home care , home PT. Transportation will be arranged by the social services technician. Will continue with present meds at home.
[2017-05-15] MEDS ORDERED: Influenza Vaccine 60 mcg/0.5 mL SYR (4YR UP) IM ONE (17:00)
== END 2017-05-15 18:05 | disposition home or self-care (01) | DRG 392 ==
LOC: C.ER 02:22 → C.9E 11:11 → C.3T 14:03 → OBSVTOIN 05-15 11:12
PROVIDERS: ADMIT Internal Medicine; ATTEND Internal Medicine
DX: K59.00 Constipation, unspecified (principal); K50.90 Crohn's disease, unspecified, without complications; G30.9 Alzheimer's disease, unspecified; F02.80 Dementia in other diseases classified elsewhere, unspecified severity, without behavioral disturbance, psychotic disturbance, mood disturbance, and anxiety; E03.9 Hypothyroidism, unspecified; E78.00 Pure hypercholesterolemia, unspecified; I10 Essential (primary) hypertension; W18.11XA Fall from or off toilet without subsequent striking against object, initial encounter; Z90.49 Acquired absence of other specified parts of digestive tract; Y92.002 Bathroom of unspecified non-institutional (private) residence as the place of occurrence of the external cause

== ENCOUNTER 2018-04-27 01:10 | Emergency (ER) | payer MEDICARE, MEDICAID | END 2018-04-27 15:50 | disposition home or self-care (01) | LOC: C.ER 01:10 ==